=== PATIENT | female | born 1960 | race Caucasian/White ===

== ENCOUNTER → 2020-08-17 11:02 | Outpatient (CLI) | payer BC, SELFPAY ==
[2020-08-17 12:21] LABS: Calcium 6.3 mg/dl (8.4-10.2)
[2020-08-17 15:16] LABS: 25-OH Vitamin D, Total 65.6 ng/mL (30-100)
[2020-08-18 18:18] LABS: Calcium, Ionized 3.4 mg/dL (4.5-5.6)
== END ==
PROVIDERS: Visit Provider Family Medicine
DX: E83.51 Hypocalcemia (principal)
CPT/HCPCS: 36415; 82306; 82310; 82330

== ENCOUNTER 2021-02-26 14:14 | Emergency (ER) | payer BC, SELFPAY ==
[2021-02-26] VITALS (9 sets, daily range): BP systolic 133–156; BP diastolic 76–106; PULSE 73–99; RESP 16–19; TEMP 36.6–36.7; O2SAT 96–98; BMI 25.0
--- NOTE | 2021-02-26 14:28 | HMH.EDGENADL ---
ED Disposition Clinical Impression: Hypocalcemia, Hypokalemia Disposition: Admitted As Inpatient Condition on Discharge: Fair Instructions: DI for Hypokalemia, DI for Hypocalcemia Additional Instructions: You have been evaluated for hypocalcemia and hypokalemia. Please take 1 g oral calcium every 6 hours for the next 2 days. Follow-up with your primary care doctor in 48 hours for repeat calcium check. Return to the emergency department at once if you have any new or worsening symptoms, muscle cramps, weakness, seizures, any other concerns. Prescriptions: Calcium Carbonate [Calcium] 1,000 mg PO Q6 2 Days #16 tab Transmission Status: Received by [id number] Referrals: Shaniqua Camilo APRN [Primary Care Provider] - Time of Disposition: 17:30 - Critical Care Critical Care Time: No Attestation: On 02/26/21, the high probability of a clinically significant, sudden or life threatening deterioration of the following system(s) required my full and direct attention, intervention and personal management. The time I documented below is in addition to time spent performing reported procedures but includes the following listed in this critical care notation. Medical Decision Making - Medical Records Medical records reviewed: Yes: I reviewed the patient's medical records. - Harley Inquiry Pt receiving controlled substance: No Vital Signs: 02/26/21 14:15 02/26/21 14:37 02/26/21 15:00 Temperature 97.8 F Temperature Source Oral Pulse Rate 99 H 87 Pulse Rate [Left Radial] 94 H Respiratory Rate 19 Blood Pressure 152/95 H 133/83 Blood Pressure [Right Arm] 152/95 H Blood Pressure Mean 110 100 Blood Pressure Mean [Right Arm] 114 Blood Pressure Source [Right Arm] Automatic Cuff Blood Pressure Position [Right Arm] Sitting 02 Sat by Pulse Oximetry 96 96 Oxygen Delivery Method Room Air 02/26/21 15:30 02/26/21 16:00 02/26/21 16:09 Temperature Temperature Source Pulse Rate 80 73 79 Pulse Rate [Left Radial] Respiratory Rate 16 Blood Pressure 151/84 H 152/81 H 145/76 H Blood Pressure [Right Arm] Blood Pressure Mean 106 104 101 Blood Pressure Mean [Right Arm] Blood Pressure Source [Right Arm] Blood Pressure Position [Right Arm] 02 Sat by Pulse Oximetry 96 98 98 Oxygen Delivery Method 02/26/21 16:31 02/26/21 17:31 02/26/21 18:50 Temperature 98.1 F Temperature Source Oral Pulse Rate 77 78 78 Pulse Rate [Left Radial] Respiratory Rate 16 16 Blood Pressure 156/106 H 140/86 140/86 Blood Pressure [Right Arm] Blood Pressure Mean 118 106 Blood Pressure Mean [Right Arm] Blood Pressure Source [Right Arm] Blood Pressure Position [Right Arm] 02 Sat by Pulse Oximetry 97 98 Oxygen Delivery Method Room Air Room Air - Lab Data Lab Results 02/26/21 14:25: Sodium 140, Potassium 2.8 L*, Chloride 102, Carbon Dioxide 25, Anion Gap 15.8 H, BUN 8, Creatinine 1.10 H, Estimated Creat Clear 59, Estimated GFR 51 L, Est GFR ( Amer) 62, Glucose 100, Calcium 6.3 L, Magnesium 1.5 L, Total Bilirubin 0.4, AST 21, ALT 12, Alkaline Phosphatase 72, Total Protein 7.3, Albumin 4.2, Globulin 3.1, Albumin/Globulin Ratio 1.4 02/26/21 14:26: Phosphorus 6.5 H 02/26/21 14:45: WBC 7.5, RBC 4.69, Hgb 14.2, Hct 41.4, MCV 88.1, MCH 30.2, MCHC 34.2, RDW 14.0, Plt Count 239, MPV 8.4, Neut % (Auto) 60.5, Lymph % (Auto) 28.0, [place] % (Auto) 7.2, Eos % (Auto) 3.6, Baso % (Auto) 0.7, Neut # (Auto) 4.6, Lymph # (Auto) 2.1, [place] # (Auto) 0.5, Eos # (Auto) 0.3, Baso # (Auto) 0.1 02/26/21 14:45: Troponin I < 0.01 02/26/21 14:45: Sodium Cancelled, Potassium Cancelled, Chloride Cancelled, Carbon Dioxide Cancelled, Anion Gap Cancelled, BUN Cancelled, Creatinine Cancelled, Estimated Creat Clear Cancelled, Estimated GFR Cancelled, Est GFR ( Amer) Cancelled, Glucose Cancelled, Calcium Cancelled 02/26/21 17:00: Sodium 141, Potassium 3.5 D, Chloride 106, Carbon Dioxide 24, Anion Gap 14.5,
--- NOTE | 2021-02-26 14:33 | ECG_ITS ---
APPROVED REPORT Exam: Resting ECG HR:97 bpm ECG Measurements Heart Rate 97 AXES NC 138 P 61 QRSd 80 QRS 56 QT 386 T 266 QTc 490 Conclusion Normal sinus rhythm Left atrial abnormality Old nonsignificant inferior q waves - old finding Abnormal ECG Electronically signed by : Agapito Stapleton, 02/27/2021 13:16:56
[2021-02-26 14:55] LABS: Basophils # 0.1 K/mm3 (0-0.2); Basophils % 0.7 % (0.1-2.0); Eosinophils # 0.3 K/mm3 (0.0-0.4); Eosinophils % 3.6 % (0.1-12.0); Hematocrit 41.4 % (37.0-47.0); Hemoglobin 14.2 g/dL (12.2-16.2); Lymphocytes # 2.1 K/mm3 (0.7-4.5); Mean Corpuscular HGB Conc 34.2 g/dL (31.8-35.4); Mean Corpuscular Hemoglobin 30.2 pg (27.0-31.2); Mean Corpuscular Volume 88.1 fl (81-99); Mean Platelet Volume 8.4 fl (7.4-10.4); Monocytes # 0.5 K/mm3 (0.1-1.0); Monocytes % 7.2 % (1.7-9.3); Neutrophils # 4.6 K/mm3 (1.8-7.8); Neutrophils % 60.5 % (37.0-80.0); Platelet Count 239 K/mm3 (142-424); Red Blood Count 4.69 M/mm3 (4.20-5.40); White Blood Count 7.5 K/mm3 (4.8-10.8)
[2021-02-26 15:05] LABS: Phosphorous 6.5 mg/dl (2.5-4.5)
[2021-02-26 15:06] LABS: Alanine Aminotransferase 12 U/L (12-78); Albumin Level 4.2 g/dl (3.5-5.0); Albumin/Globulin Ratio 1.4 (1.1-1.8); Alkaline Phosphatase 72 U/L (38-126); Anion Gap 15.8 mEq/L (5-15); Aspartate Amino Transferase 21 U/L (14-36); Bilirubin,Total 0.4 mg/dl (0.2-1.3); Blood Urea Nitrogen 8 mg/dl (7-17); Carbon Dioxide 25 mmol/L (22.0-30.0); Chloride 102 mmol/L (98-107); Creatinine Clearance Estimated 59 mL/min (50-200); Estimated Glomerular Filt Rate 51 ml/min (>60); GFR (African American) 62 ML/MIN (>60); Globulin 3.1 g/dL (1.3-3.2); Glucose 100 mg/dl (74-100); Magnesium 1.5 mg/dl (1.6-2.3); Sodium 140 mmol/L (136-145); Total Protein,Serum 7.3 g/dl (6.3-8.2)
[2021-02-26 15:10] LABS: Calcium 6.3 mg/dl (8.4-10.2); Potassium 2.8 mmoL/L (3.5-5.1)
--- NOTE | 2021-02-26 15:10 | PC.NURSE ---
critical labs called, K+ 2.8 and calcium 6.3. aware
[2021-02-26 16:05] LABS: Troponin I < 0.01 ng/ml (0.00-0.034)
[2021-02-26 17:26] LABS: Anion Gap 14.5 mEq/L (5-15); Blood Urea Nitrogen 8 mg/dl (7-17); Carbon Dioxide 24 mmol/L (22.0-30.0); Chloride 106 mmol/L (98-107); Creatinine Clearance Estimated 72 mL/min (50-200); Estimated Glomerular Filt Rate 64 ml/min (>60); GFR (African American) 78 ML/MIN (>60); Glucose 99 mg/dl (74-100); Potassium 3.5 mmoL/L (3.5-5.1); Sodium 141 mmol/L (136-145)
[2021-02-26 17:28] LABS: Calcium 6.2 mg/dl (8.4-10.2)
--- NOTE | 2021-02-26 17:30 | PC.NURSE ---
Called section housekeeper for a bed.
--- NOTE | 2021-02-26 18:16 | PC.NURSE ---
Addendum entered by Christina Zaldivar, EMT-P 02/26/21 18:16: Busher Helper notified to cancel the bed. Original Note: Patient states she does not want to be admitted. Patient advised by RN the risks of not being admitted and advised she would have to sign out AMA.
[2021-02-26 18:25] LABS: Chloride 108 mmol/L (98-107)
[2021-02-26 18:26] LABS: Potassium 3.2 mmoL/L (3.5-5.1); Sodium 140 mmol/L (136-145)
[2021-02-26 18:28] LABS: Blood Urea Nitrogen 8 mg/dl (7-17); Creatinine Clearance Estimated 72 mL/min (50-200); Estimated Glomerular Filt Rate 64 ml/min (>60); GFR (African American) 78 ML/MIN (>60)
[2021-02-26 18:29] LABS: Anion Gap 9.2 mEq/L (5-15); Carbon Dioxide 26 mmol/L (22.0-30.0); Glucose 100 mg/dl (74-100)
[2021-02-26 18:31] LABS: Calcium 6.6 mg/dl (8.4-10.2)
--- NOTE | 2021-02-26 18:31 | PC.NURSE ---
Critical lab value: Calcium 6.6
--- NOTE | 2021-02-26 18:32 | PC.NURSE ---
Calcium 6.6 MD Aware
[2021-02-26 18:49] LABS: Troponin I < 0.01 ng/ml (0.00-0.034)
== END 2021-02-26 18:50 | disposition admitted as inpatient to this hospital (09) ==
PROVIDERS: Emergency Provider Emergency Medicine; PCP Nurse Practitioner Family
DX: E83.51 Hypocalcemia (principal); E87.6 Hypokalemia
CPT/HCPCS: 80048; 80053; 83735; 84100; 84484; 85025; 93005; 96365; 96366; 99282; J2405

== ENCOUNTER → 2021-03-14 18:01 | Outpatient (CLI) | payer BC, SELFPAY ==
[2021-03-22 17:39] LABS: C difficile Toxins AB, EIA NEGATIVE
== END ==
PROVIDERS: Visit Provider Nurse Practitioner Family
DX: R19.7 Diarrhea, unspecified (principal)
CPT/HCPCS: 87045; 87324

== ENCOUNTER → 2021-05-13 09:38 | Outpatient (CLI) | payer BC, SELFPAY ==
[2021-05-13 10:24] LABS: Basophils # 0.1 K/mm3 (0-0.2); Basophils % 1.4 % (0.1-2.0); Eosinophils # 0.2 K/mm3 (0.0-0.4); Eosinophils % 2.7 % (0.1-12.0); Hematocrit 39.7 % (37.0-47.0); Hemoglobin 13.3 g/dL (12.2-16.2); Lymphocytes # 2.2 K/mm3 (0.7-4.5); Lymphocytes % 30.1 % (10-50); Mean Corpuscular HGB Conc 33.6 g/dL (31.8-35.4); Mean Corpuscular Hemoglobin 29.7 pg (27.0-31.2); Mean Corpuscular Volume 88.4 fl (81-99); Mean Platelet Volume 8.7 fl (7.4-10.4); Monocytes # 0.4 K/mm3 (0.1-1.0); Monocytes % 5.3 % (1.7-9.3); Neutrophils # 4.5 K/mm3 (1.8-7.8); Neutrophils % 60.6 % (37.0-80.0); Platelet Count 243 K/mm3 (142-424); Red Blood Count 4.49 M/mm3 (4.20-5.40); Red Cell Distribution Width 14.3 % (11.5-17.5); White Blood Count 7.4 K/mm3 (4.8-10.8)
[2021-05-13 11:01] LABS: Chloride 102 mmol/L (98-107); Potassium 3.5 mmoL/L (3.5-5.1); Sodium 143 mmol/L (136-145)
[2021-05-13 11:04] LABS: Alanine Aminotransferase 9 U/L (12-78); Albumin Level 4.3 g/dl (3.5-5.0); Albumin/Globulin Ratio 1.5 (1.1-1.8); Alkaline Phosphatase 77 U/L (38-126); Anion Gap 13.5 mEq/L (5-15); Aspartate Amino Transferase 19 U/L (14-36); Bilirubin,Total 0.5 mg/dl (0.2-1.3); Blood Urea Nitrogen 11 mg/dl (7-17); Carbon Dioxide 31 mmol/L (22.0-30.0); Estimated Glomerular Filt Rate 57 ml/min (>60); GFR (African American) 69 ML/MIN (>60); Globulin 2.8 g/dL (1.3-3.2); Total Protein,Serum 7.1 g/dl (6.3-8.2)
[2021-05-13 11:05] LABS: Calcium 7.2 mg/dl (8.4-10.2); Glucose 118 mg/dl (74-100)
== END ==
PROVIDERS: Visit Provider Nurse Practitioner Family
DX: E83.51 Hypocalcemia (principal); R19.7 Diarrhea, unspecified
CPT/HCPCS: 36415; 80053; 85025

== ENCOUNTER → 2021-05-15 09:26 | Outpatient (CLI) | payer BC, SELFPAY ==
--- NOTE | 2021-05-15 09:34 | US_ITS ---
PROCEDURE: US ABDOMEN LIMITED CLINICAL INDICATION: RUQ ABD PAIN COMPARISON: No exams were available for comparison FINDINGS: PANCREAS: Unremarkable. No obvious mass or abnormal fluid collection. No ductal dilatation LIVER: No focal liver lesions demonstrated. Homogeneous echogenicity. No intrahepatic biliary ductal dilatation evident. There is appropriate direction of blood flow within a non dilated portal vein RIGHT KIDNEY: Unremarkable. Normal size and echogenicity. No hydronephrosis GALLBLADDER: No gallstones apparent. Gallbladder wall is upper limits of normal at 3-4 mm. No pericholecystic fluid. Common duct is normal at 4-5 mm. IMPRESSION: No gallstones apparent. Nonspecific minimal gallbladder wall thickening Dictated by: Bran Munguia MD 05/16/2021 15:11 Bran Munguia MD in [facility] 05/16/2021 15:11
== END ==
PROVIDERS: PCP Nurse Practitioner Family; Visit Provider Nurse Practitioner Family
DX: R10.11 Right upper quadrant pain (principal)
CPT/HCPCS: 76705

== ENCOUNTER 2021-06-15 11:09 | Day surgery (SDC) | payer BC, SELFPAY ==
[2021-06-15] VITALS (13 sets, daily range): BP systolic 120–174; BP diastolic 63–94; PULSE 67–87; RESP 12–16; TEMP 36.1–43; O2SAT 93–100; BMI 23.6
--- NOTE | 2021-06-15 11:22 | HMH.EDGENADL ---
ED Disposition Clinical Impression: Appendicitis Disposition: Admitted As Inpatient Condition on Discharge: Good Instructions: DI for Acute Abdominal Pain Referrals: Shaniqua Camilo APRN [Primary Care Provider] - - Critical Care Critical Care Time: No Attestation: On , the high probability of a clinically significant, sudden or life threatening deterioration of the following system(s) required my full and direct attention, intervention and personal management. The time I documented below is in addition to time spent performing reported procedures but includes the following listed in this critical care notation. Medical Decision Making - Medical Records MR Comment: CT scan of the abdomen is consistent with appendicitis with thickness about 14 mm of the appendix. Dr. Bartholomew the surgeon was called and he agreed to admit the patient. Patient agreed to be admitted. Will be n.p.o.. - Harley Inquiry Pt receiving controlled substance: No Harley was queried for this patient: No Vital Signs: 06/15/21 11:10 06/15/21 11:30 06/15/21 12:15 Temperature 97.9 F Temperature Source Oral Pulse Rate 71 67 Pulse Rate [Radial] 77 Respiratory Rate 16 Blood Pressure 156/85 H 164/83 H Blood Pressure [Right Arm] 174/94 H Blood Pressure Mean [Right Arm] 120 Blood Pressure Position [Right Arm] Sitting 02 Sat by Pulse Oximetry 93 L 99 100 Oxygen Delivery Method Room Air Nasal Cannula Nasal Cannula Oxygen Flow Rate (LPM) 2 2 06/15/21 12:49 Temperature Temperature Source Pulse Rate 78 Pulse Rate [Radial] Respiratory Rate Blood Pressure 153/79 H Blood Pressure [Right Arm] Blood Pressure Mean [Right Arm] Blood Pressure Position [Right Arm] 02 Sat by Pulse Oximetry 100 Oxygen Delivery Method Nasal Cannula Oxygen Flow Rate (LPM) 2 - Lab Data Lab Results 06/15/21 11:20: Urine Color Yellow, Urine Appearance Cloudy, Urine pH >= 9.0 H, Ur Specific [place] 1.015, Urine Protein Negative, Urine Glucose (UA) Negative, Urine Ketones Negative, Urine Blood Trace-i, Urine Nitrate Negative, Urine Bilirubin Negative, Urine Urobilinogen 0.2, Ur Leukocyte Esterase Negative, Urine RBC Occasional, Urine WBC Occasional, Ur Squamous Epith Cells 5-10, Urine Bacteria 3+ 06/15/21 11:20: WBC 10.9 H, RBC 4.46, Hgb 13.7, Hct 39.8, MCV 89.1, MCH 30.7, MCHC 34.4, RDW 14.6, Plt Count 225, MPV 8.8, Neut % (Auto) 80.0, Lymph % (Auto) 14.9, [place] % (Auto) 3.8, Eos % (Auto) 0.7, Baso % (Auto) 0.7, Neut # (Auto) 8.7 H, Lymph # (Auto) 1.6, [place] # (Auto) 0.4, Eos # (Auto) 0.1, Baso # (Auto) 0.1 06/15/21 11:20: Sodium 142, Potassium 3.1 L, Chloride 103, Carbon Dioxide 29, Anion Gap 13.1, BUN 11, Creatinine 1.20 H, Estimated Creat Clear 55, Estimated GFR 46 L, Est GFR ( Amer) 56 L, Glucose 147 H, Calcium 8.5, Total Bilirubin 0.5, AST 23, ALT 16, Alkaline Phosphatase 84, Total Protein 7.7, Albumin 4.5, Globulin 3.2, Albumin/Globulin Ratio 1.4, Amylase 36, Lipase 47 Result diagrams: 06/15/21 11:20 06/15/21 11:20 Orders (Tests/Meds): ED MEDICATIONS Discontinued Medications Generic Name Dose Route Start Last Admin Trade Name Freq PRN Reason Stop Dose Admin Sodium Chloride 1,000 mls @ 999 mls/hr 06/15/21 11:30 06/15/21 11:31 Sod Chlor 0.9% 1000ml Bag IV 06/15/21 12:30 999 mls/hr .Q1H1M CHERIE Administration Ketorolac Tromethamine 30 mg 06/15/21 11:30 06/15/21 11:31 Ketorolac 30mg/Ml Vial IV 06/15/21 11:31 30 mg ONCE ONE Administration Ondansetron HCl 4 mg 06/15/21 11:30 06/15/21 11:31 Ondansetron 4mg/2ml Vial IV 06/15/21 11:31 4 mg ONCE ONE Administration ORDERS Category Date Time Status Urine Culture Stat Micro 06/15/21 11:20 Received General Adult HPI - General Chief complaint: Abdominal Pain Stated complaint: Rt side pain Time Seen by Provider: 06/15/21 11:50 - History of Present Illness HPI narrative: 11-year-old male who woke up this morning with right-sided abdominal pa
[2021-06-15 11:34] LABS: Microscopic, Urine URINE MICROSCOPIC (MICROSCOPIC)
[2021-06-15 11:35] LABS: Basophils # 0.1 K/mm3 (0-0.2); Basophils % 0.7 % (0.1-2.0); Eosinophils # 0.1 K/mm3 (0.0-0.4); Eosinophils % 0.7 % (0.1-12.0); Hematocrit 39.8 % (37.0-47.0); Hemoglobin 13.7 g/dL (12.2-16.2); Lymphocytes # 1.6 K/mm3 (0.7-4.5); Lymphocytes % 14.9 % (10-50); Mean Corpuscular HGB Conc 34.4 g/dL (31.8-35.4); Mean Corpuscular Hemoglobin 30.7 pg (27.0-31.2); Mean Corpuscular Volume 89.1 fl (81-99); Mean Platelet Volume 8.8 fl (7.4-10.4); Monocytes # 0.4 K/mm3 (0.1-1.0); Monocytes % 3.8 % (1.7-9.3); Neutrophils # 8.7 K/mm3 (1.8-7.8); Platelet Count 225 K/mm3 (142-424); Red Blood Count 4.46 M/mm3 (4.20-5.40); Red Cell Distribution Width 14.6 % (11.5-17.5); White Blood Count 10.9 K/mm3 (4.8-10.8)
[2021-06-15 11:36] LABS: Chloride 103 mmol/L (98-107); Sodium 142 mmol/L (136-145)
[2021-06-15 11:37] LABS: Potassium 3.1 mmoL/L (3.5-5.1)
[2021-06-15 11:39] LABS: Alanine Aminotransferase 16 U/L (12-78); Amylase 36 U/L (30-110); Anion Gap 13.1 mEq/L (5-15); Aspartate Amino Transferase 23 U/L (14-36); Blood Urea Nitrogen 11 mg/dl (7-17); Carbon Dioxide 29 mmol/L (22.0-30.0); Creatinine Clearance Estimated 55 mL/min (50-200); Estimated Glomerular Filt Rate 46 ml/min (>60); GFR (African American) 56 ML/MIN (>60)
[2021-06-15 11:40] LABS: Albumin Level 4.5 g/dl (3.5-5.0); Albumin/Globulin Ratio 1.4 (1.1-1.8); Alkaline Phosphatase 84 U/L (38-126); Bilirubin,Total 0.5 mg/dl (0.2-1.3); Calcium 8.5 mg/dl (8.4-10.2); Globulin 3.2 g/dL (1.3-3.2); Glucose 147 mg/dl (74-100); Lipase 47 U/L (23-300); Total Protein,Serum 7.7 g/dl (6.3-8.2)
[2021-06-15 11:41] LABS: Appearance,Urine CLOUDY (Clear); Bilirubin,Urine Negative (Negative); Blood, Urine TRACE-I (Negative); Color,Urine YELLOW (Yellow); Glucose,Urine (UA) Negative (Negative); Ketones,Urine Negative (Negative); Leukocyte Esterase,Urine Negative (Negative); Nitrate,Urine Negative (Negative); Protein,Urine Negative (Negative); Specific Gravity, Urine 1.015 (1.005-1.030); Urobilinogen,Urine 0.2 EU/dl (0.2)
[2021-06-15 11:44] LABS: PH,Urine >= 9.0 (5.0-8.5)
[2021-06-15 11:51] LABS: Bacteria,Urine 3+ /lpf; RBC,Urine Occasional #/hpf (0-3); WBC,Urine Occasional #/hpf (0-3)
--- NOTE | 2021-06-15 11:57 | CT_ITS ---
PROCEDURE INFORMATION: Exam: CT Abdomen And Pelvis Without Contrast Exam date and time: 06/15/2021 11:57 AM Age: 61 years old Clinical indication: Vomiting and other: Diarrhea; Prior surgery; Surgery date: 6+ months; Surgery type: Hysterectomy, 2 c sections; Additional info: Pain, patient also states vomiting and diarrhea intermittent since February 2021 TECHNIQUE: Imaging protocol: Computed tomography of the abdomen and pelvis without contrast. Radiation optimization: All CT scans at this facility use at least one of these dose optimization techniques: automated exposure control; mA and/or kV adjustment per patient size (includes targeted exams where dose is matched to clinical indication); or iterative reconstruction. COMPARISON: US ABDOMEN LIMITED 05/15/2021 9:34 AM FINDINGS: Liver: Normal. No mass. Gallbladder and bile ducts: Normal. No calcified stones. No ductal dilation. Pancreas: Normal. No ductal dilation. Spleen: Normal. No splenomegaly. Adrenal glands: Normal. No mass. Kidneys and ureters: Normal. No hydronephrosis. Stomach and bowel: Unremarkable. No obstruction. No mucosal thickening. Appendix: Appendix distended to 14 mm, without significant inflammatory changes. Appendicolith noted at the appendiceal base. Early appendicitis without perforation, clinical correlation necessary. Intraperitoneal space: Unremarkable. No free air. No significant fluid collection. Vasculature: Unremarkable. No abdominal aortic aneurysm. Lymph nodes: Unremarkable. No enlarged lymph nodes. Urinary bladder: Unremarkable as visualized. Reproductive: Unremarkable as visualized. Bones/joints: Unremarkable. No acute fracture. Soft tissues: Unremarkable. IMPRESSION: Appendix distended to 14 mm, without significant inflammatory changes. Appendicolith noted at the appendiceal base. Early appendicitis without perforation, clinical correlation necessary.
--- NOTE | 2021-06-15 12:50 | PC.NURSE ---
Pt returned from rad
--- NOTE | 2021-06-15 13:27 | PC.NURSE ---
YULIANA [place] on phone with [facility] at this time
--- NOTE | 2021-06-15 13:30 | PC.NURSE ---
Paged the surgeon longwall machine operator helper per MD verbal request
--- NOTE | 2021-06-15 13:31 | PC.NURSE ---
on phone with Dr. Meeks at this time
--- NOTE | 2021-06-15 13:35 | PC.NURSE ---
Dr. Meeks stated for patient to be prepped for surgery at this time
--- NOTE | 2021-06-15 14:09 | PC.NURSE ---
Surgery team paged.
--- NOTE | 2021-06-15 14:11 | PC.NURSE ---
Dr Meeks at bedside surgery team paged.
--- NOTE | 2021-06-15 14:40 | PC.NURSE ---
allied health professional for dr adrianna borrego
[2021-06-15 14:47] LABS: Coronavirus 19, PCR Not Detected (NotDetected); Influenza A, PCR Not Detected (NotDetected); Influenza B, PCR Not Detected (NotDetected)
--- NOTE | 2021-06-15 14:51 | PC.NURSE ---
pt transferred to surgery
--- NOTE | 2021-06-15 15:20 | HMH.ANESCL ---
[facility] Anesthesia Checklist - Structural Data Admitted From: Emergency Dept Planned Operative Procedure/s: lap appy Consent for Planned Operative Procedure(s) Verified: Yes - Airway Assessment C-Spine Mobility Assessed: Yes TMJ Mobility Assessed: Yes Dentition: Good Dentition - Neurological Assessment Level of Consciousness: Awake, Alert, Appropriate - Anesthesia Plan Anesthesia Risk discussed: Yes Anesthesia Plan: Verified ASA Class: II Anesthesia Type: General [facility] History I have reviewed the patient's past medical history: Yes Medical History: Denies:: Cancer, Diabetes Mellitus Type 1, Diabetes Mellitus Type 2, MRSA *Have you ever received a pneumonia vaccine?: No *Have you received a flu vaccine this season?: No Anesthesia experience/problems:: none Amputation: No - *Social History Smoking Status: Current every day smoker Tobacco Type: cigarettes Alcohol Intake: never Substance Use Type: denies use *Occupational Status:: other *Travel in the last 8 weeks: Inside the [facility] Family Hx:: No significant family history
--- NOTE | 2021-06-15 16:12 | HMH.OPNOTE ---
Date of procedure: 06/15/21 Pre-op Diagnosis:: Appendicitis Post-op Diagnosis:: Same Procedure performed:: Laparoscopic appendectomy Surgeon:: Eitan Meeks MD REFERENCE SERVICES HEAD:: Jose Jones Anesthesia: GETA Estimated blood loss (mL): 25 Operative findings:: Enlarged/inflamed appendix with moderate periappendiceal fat stranding Severe adhesions between omentum and anterior abdominal wall secondary to prior surgery Operative note:: After informed consent was obtained the patient was taken to the operating room and placed in the supine position. General anesthesia was induced and her abdomen was prepped and draped in a sterile fashion. After infiltration local anesthetic a supraumbilical incision was made. A Veress needle was placed in position. The abdomen was insufflated. A 12 mm optical trocar was placed in position. Visualization revealed dense adhesions throughout the lower abdomen. The omentum was densely adhered to the abdominal wall between the umbilicus and pelvis. Under direct visualization a 5 mm trocar was placed in the left upper quadrant. The lateral adhesions were taken down bluntly and an additional 5 mm trocar was placed along the left lower quadrant. Blunt dissection continued to free the densely-adhered omentum. An additional 5 mm trocar was then placed in the suprapubic position. The appendix was found to be adhered to the lateral right lower quadrant. The appendix was enlarged and very inflamed. No sign of perforation was noted. As the appendix was elevated the mesoappendix was taken with harmonic erin. The Endopath 45 stapling device was then used to transect the appendix at its base. The appendix was placed in a retrieval bag and removed through the supraumbilical trocar site. The right lower quadrant was thoroughly irrigated. No active bleeding or sign of injury was noted. The fascia at the supraumbilical trocar site was reapproximated with interrupted 0 Ethibond. The remaining trocars were removed and skin was closed with 4-0 Monocryl. Dressings were applied and the patient was transferred to recovery in stable condition. Condition: stable Disposition: PACU Specimens:: Appendix Complications:: No immediate
--- NOTE | 2021-06-15 16:18 | HMH.ANESI ---
[facility] Anesthesia Record Part I Intake, IV Amount: 1,600 Estimated blood loss (mL): 0 Urine output (mL): 400 Blood Pressure: 136/73 SaO2: 97 Pulse Rate: 87 Respiratory Rate: 12 Temperature: 97 F Patient is:: Awake, Stable Stable to PACU at:: 16:15
[2021-06-15 17:12] LABS: Microscopic,Cath URINE MICROSCOPIC (MICROSCOPIC)
[2021-06-15 17:14] LABS: Appearance,Urine/Cath SL CLOUDY (Clear); Bilirubin,Cath Negative (Negative); Blood, Urine/Cath 1+ (Negative); Color,Urine/Cath STRAW (Yellow); Glucose,Urine/Cath (UA) Negative (Negative); Ketones,Urine/Cath Negative (Negative); Leukocyte Esterase,Cath TRACE (Negative); Nitrate,Cath POSITIVE (Negative); PH,Urine/Cath 7.5 (5.0-8.5); Protein,Urine/Cath Negative (Negative); Urobilinogen,Cath 0.2 EU/dl (0.2)
[2021-06-15 17:21] LABS: Bacteria,Urine/Cath 4+ /lpf
--- NOTE | 2021-06-18 08:53 | HMH.ANESII ---
[facility] Anesthesia Record Part II Discharge Time: 16:34 Destination: Surgical Day Care (OP Surgery) PACU nurse assessment reviewed?: Yes Patient Condition:: Good Anesthesia Complications:: None Swallowing reflex intact?: Yes Cyanosis?: No Blood Pressure: 120/63 Pulse Rate: 78 Temperature: 97.4 F Mental Status: Alert & Oriented Pain level:: 0 Nausea and/or vomitting:: None Intake, IV Amount: 0
[2021-06-18 08:54] VITALS: BP 120/63; PULSE 78; TEMP 36.3
== END 2021-06-15 15:17 ==
LOC: ER 14:16 → SDC 15:18
PROVIDERS: Emergency Provider Internal Medicine; PCP Nurse Practitioner Family; Visit Provider Surgery
PROC: (CPT 44950; principal; 2021-06-15 15:00)
DX: K35.890 Other acute appendicitis without perforation or gangrene (principal); K66.0 Peritoneal adhesions (postprocedural) (postinfection); Z72.0 Tobacco use; E89.0 Postprocedural hypothyroidism
CPT/HCPCS: 44970; 74176; 80053; 81001; 82150; 83690; 85025; 87086; 87088; 87186; 96365; 96375; 99284; J2405; J2710; U0003

== ENCOUNTER 2022-04-20 16:41 | Inpatient (IN) | payer BC, SELFPAY ==
[2022-04-20] VITALS (7 sets, daily range): BP systolic 102–143; BP diastolic 55–78; PULSE 70–115; RESP 17–18; TEMP 37–39.2; O2SAT 95–98; BMI 22.8; BMI 24.1
--- NOTE | 2022-04-20 16:38 | PC.NURSE ---
JANICE Joe at for triage
--- NOTE | 2022-04-20 16:42 | ECG_ITS ---
APPROVED REPORT Exam: Resting ECG HR:108 bpm ECG Measurements Heart Rate 108 AXES LA 148 P 55 QRSd 98 QRS 73 QT 370 T 42 QTc [address] DEVIATION AND MODERATE T-WAVE ABNORMALITY, CONSIDER LATERAL ISCHEMIA [-0.1+ mV T-WAVE IN I/aVL/V5/V6] ST DEVIATION AND MODERATE T-WAVE ABNORMALITY, CONSIDER INFERIOR ISCHEMIA [-0.1+ mV T-WAVE IN II/aVF] ABNORMAL ECG UNCONFIRMED REPORT Electronically signed by : Agapito Stapleton MD 04/21/2022 09:40:22
--- NOTE | 2022-04-20 16:48 | HMH.EDGENADL ---
ED Disposition Clinical Impression: Hypokalemia, Hypocalcemia Syncopal episodes Qualifiers: Syncope type: vasovagal syncope Qualified Code(s): R55 - Syncope and collapse Disposition: Admitted As Inpatient Condition on Discharge: [facility] - Critical Care Critical Care Time: Yes (Severe hypokalemia ) Attestation: On 04/20/22, the high probability of a clinically significant, sudden or life threatening deterioration of the following system(s) required my full and direct attention, intervention and personal management. The time I documented below is in addition to time spent performing reported procedures but includes the following listed in this critical care notation. Vital system(s) involved:: Metabolic Failure My critical care processes included: Assessment & monitoring of V/S, Initial and Re-exams, Data Review/Interpretation, Coordinating Care, Medication Orders and management Medical Decision Making - Medical Records Medical records reviewed: Yes: I reviewed the patient's medical records. - Harley Inquiry Pt receiving controlled substance: No Vital Signs: 04/20/22 16:38 04/20/22 17:00 04/20/22 17:30 Temperature 102.5 F H Temperature Source Oral Pulse Rate 108 H 102 H Pulse Rate [Right Radial] 115 H Respiratory Rate 18 18 17 Blood Pressure 136/66 102/64 L Blood Pressure [Right Arm] 143/78 H Blood Pressure Mean 89 76 Blood Pressure Mean [Right Arm] 99 Blood Pressure Source Automatic Cuff Blood Pressure Source [Right Arm] Automatic Cuff Blood Pressure Position Sitting Blood Pressure Position [Right Arm] Sitting 02 Sat by Pulse Oximetry 95 96 96 Oxygen Delivery Method Room Air Room Air 04/20/22 18:00 04/20/22 19:36 Temperature 98.6 F Temperature Source Pulse Rate 95 H 90 Pulse Rate [Right Radial] Respiratory Rate 17 18 Blood Pressure 104/55 L 105/77 L Blood Pressure [Right Arm] Blood Pressure Mean 71 Blood Pressure Mean [Right Arm] Blood Pressure Source Blood Pressure Source [Right Arm] Blood Pressure Position Blood Pressure Position [Right Arm] 02 Sat by Pulse Oximetry 98 Oxygen Delivery Method - Lab Data Lab results reviewed: Yes: I reviewed the patient's lab results. Lab Results 04/20/22 16:41: SARS-CoV-2 (PCR) Not detected, Influenza A Untype (PCR) Not detected, Influenza Type B (PCR) Not detected 04/20/22 17:08: WBC 15.7 H, RBC 4.00 L, Hgb 12.4, Hct 36.1 L, MCV 90.2, MCH 31.1, MCHC 34.4, RDW 13.9, Plt Count 231, MPV 8.7, Neut % (Auto) 86.7 H, Lymph % (Auto) 6.6 L, [place] % (Auto) 4.4, Eos % (Auto) 0.9, Baso % (Auto) 1.3, Neut # (Auto) 13.6 H, Lymph # (Auto) 1.0, [place] # (Auto) 0.7, Eos # (Auto) 0.2, Baso # (Auto) 0.2, Total Counted 100, Neutrophils % (Manual) 86 H, Lymphocytes % (Manual) 8 L, Monocytes % (Manual) 4, Eosinophils % (Manual) 2, Platelet Estimate Normal 04/20/22 17:08: Sodium 131 L, Potassium 2.2 L*, Chloride 90 L, Carbon Dioxide 32 H, Anion Gap 11.2, BUN 21 H, Creatinine 2.10 H, Estimated Creat Clear 31, Estimated GFR 24 L, Est GFR ( Amer) 29 L, Glucose 153 H, Calcium 6.6 L, Magnesium 1.7, Total Bilirubin 1.0, AST 29, ALT 15, Alkaline Phosphatase 79, Total Protein 7.1, Albumin 3.9, Globulin 3.2, Albumin/Globulin Ratio 1.2 Result diagrams: 04/20/22 17:08 04/20/22 17:08 Orders (Tests/Meds): ED MEDICATIONS Generic Name Dose Route Start Last Admin Trade Name Freq PRN Reason Stop Dose Admin Acetaminophen 650 mg 04/20/22 19:45 Acetaminophen 325mg Tab PO 05/20/22 17:50 Q4HP PRN Fever or Mild Pain Calcium Gluconate 1,000 mg/ 60 mls @ 60 mls/hr 04/20/22 19:45 Sodium Chloride IV 04/20/22 20:44 ONCE ONE Lactated Ringer's 1,000 mls @ 100 mls/hr 04/20/22 19:45 Lactated Ringer's 1000 Ml Bag IV 05/20/22 17:59 .Q10H CHERIE Lactated Ringer's 1,000 mls @ 999 mls/hr 04/20/22 19:45 Lactated Ringer's 1000 Ml Bag IV 04/20/22 20:45 .Q1H1M CHERIE Potassium Chloride/Water 100 mls @ 100 mls/hr 04/20/22
--- NOTE | 2022-04-20 16:49 | PC.NURSE ---
ED MD at
[2022-04-20 16:57] LABS: Coronavirus 19, PCR Not Detected (NotDetected); Influenza A, PCR Not Detected (NotDetected); Influenza B, PCR Not Detected (NotDetected)
[2022-04-20 17:19] LABS: Basophils # 0.2 K/mm3 (0-0.2); Basophils % 1.3 % (0.1-2.0); Eosinophils # 0.2 K/mm3 (0.0-0.4); Eosinophils % 0.9 % (0.1-12.0); Hematocrit 36.1 % (37.0-47.0); Hemoglobin 12.4 g/dL (12.2-16.2); Lymphocytes % 6.6 % (10-50); Mean Corpuscular HGB Conc 34.4 g/dL (31.8-35.4); Mean Corpuscular Hemoglobin 31.1 pg (27.0-31.2); Mean Corpuscular Volume 90.2 fl (81-99); Mean Platelet Volume 8.7 fl (7.4-10.4); Monocytes # 0.7 K/mm3 (0.1-1.0); Monocytes % 4.4 % (1.7-9.3); Neutrophils # 13.6 K/mm3 (1.8-7.8); Neutrophils % 86.7 % (37.0-80.0); Platelet Count 231 K/mm3 (142-424); Red Cell Distribution Width 13.9 % (11.5-17.5); White Blood Count 15.7 K/mm3 (4.8-10.8)
[2022-04-20 17:20] LABS: Chloride 90 mmol/L (98-107); Sodium 131 mmol/L (136-145)
[2022-04-20 17:23] LABS: Alanine Aminotransferase 15 U/L (12-78); Albumin Level 3.9 g/dl (3.5-5.0); Albumin/Globulin Ratio 1.2 (1.1-1.8); Alkaline Phosphatase 79 U/L (38-126); Aspartate Amino Transferase 29 U/L (14-36); Blood Urea Nitrogen 21 mg/dl (7-17); Carbon Dioxide 32 mmol/L (22.0-30.0); Creatinine Clearance Estimated 31 mL/min (50-200); Estimated Glomerular Filt Rate 24 ml/min (>60); GFR (African American) 29 ML/MIN (>60); Globulin 3.2 g/dL (1.3-3.2); Glucose 153 mg/dl (74-100); Total Protein,Serum 7.1 g/dl (6.3-8.2)
[2022-04-20 17:24] LABS: Anion Gap 11.2 mEq/L (5-15); Calcium 6.6 mg/dl (8.4-10.2); Magnesium 1.7 mg/dl (1.6-2.3); Potassium 2.2 mmoL/L (3.5-5.1)
--- NOTE | 2022-04-20 17:24 | PC.NURSE ---
Family at BS
--- NOTE | 2022-04-20 17:24 | PC.NURSE ---
aware of potassium
[2022-04-20 17:26] LABS: MANUAL DIFFERENTIAL MANUAL DIFFERENTIAL (MANUAL DIFF)
--- NOTE | 2022-04-20 17:45 | PC.NURSE ---
Dr. Pieter borrego for Dr. mendoza
--- NOTE | 2022-04-20 17:48 | PC.NURSE ---
Dr. Stapleton speaking with Dr. Aguilera
--- NOTE | 2022-04-20 17:51 | PC.NURSE ---
Spoke with Angelita ([place]) regarding admission
[2022-04-20 17:53] LABS: Eosinophils % 2 % (0-3); Lymphocytes % 8 % (10-50); Monocytes % 4 % (2-9); Neutrophils % 86 % (42-76); Platelet Estimate Normal; Total Cells Counted 100
--- NOTE | 2022-04-20 19:41 | PC.NURSE ---
patient up to floor via Wheelchair @ this time.
[2022-04-21] VITALS (8 sets, daily range): BP systolic 120–126; BP diastolic 57–89; PULSE 80–100; RESP 16–20; TEMP 37.1–38.6; O2SAT 91–99; BMI 24.2
--- NOTE | 2022-04-21 04:14 | PC.NURSE ---
Addendum entered by Carola Salguero RN 04/21/22 07:05: Patient states she had x2 episodes of diarrhea this morning, denies any pain. Original Note: Pt has rested intermittently throughout shift. Pt has voiced no c/o of pain this shift with no episodes of N/V. Pt can independently ambulate to bathroom to void. Pt spiked a temp of 100.9, medicated per JAN.
[2022-04-21 06:53] LABS: Basophils # 0.1 K/mm3 (0-0.2); Basophils % 0.6 % (0.1-2.0); Eosinophils % 0.1 % (0.1-12.0); Hematocrit 31.7 % (37.0-47.0); Lymphocytes # 1.1 K/mm3 (0.7-4.5); Lymphocytes % 9.3 % (10-50); Mean Corpuscular HGB Conc 34.3 g/dL (31.8-35.4); Mean Corpuscular Hemoglobin 31.4 pg (27.0-31.2); Mean Corpuscular Volume 91.5 fl (81-99); Mean Platelet Volume 9.2 fl (7.4-10.4); Monocytes # 0.6 K/mm3 (0.1-1.0); Monocytes % 4.8 % (1.7-9.3); Neutrophils # 10.1 K/mm3 (1.8-7.8); Neutrophils % 85.1 % (37.0-80.0); Platelet Count 219 K/mm3 (142-424); Red Blood Count 3.47 M/mm3 (4.20-5.40); Red Cell Distribution Width 13.8 % (11.5-17.5); White Blood Count 11.8 K/mm3 (4.8-10.8)
[2022-04-21 07:02] LABS: Hemoglobin 10.9 g/dL (12.2-16.2); MANUAL DIFFERENTIAL MANUAL DIFFERENTIAL (MANUAL DIFF)
[2022-04-21 07:06] LABS: Anion Gap 10.7 mEq/L (5-15); Blood Urea Nitrogen 21 mg/dl (7-17); Calcium 6.2 mg/dl (8.4-10.2); Carbon Dioxide 29 mmol/L (22.0-30.0); Chloride 95 mmol/L (98-107); Creatinine Clearance Estimated 39 mL/min (50-200); Estimated Glomerular Filt Rate 31 ml/min (>60); GFR (African American) 37 ML/MIN (>60); Glucose 112 mg/dl (74-100); Sodium 132 mmol/L (136-145)
[2022-04-21 07:18] LABS: Potassium 2.7 mmoL/L (3.5-5.1)
[2022-04-21 07:32] LABS: Lymphocytes % 6 % (10-50); Monocytes % 4 % (2-9); Neutrophils % 90 % (42-76); RBC Morphology Normal; Total Cells Counted 100
[2022-04-21 07:33] LABS: Platelet Estimate Normal; Toxic Granulation 1+
--- NOTE | 2022-04-21 07:59 | P.CONPHA_ITS ---
[facility] Pharmacy VTE Monitoring - Patient Demographics Admission date: 04/20/22 Report Date: 04/21/22 Time: 07:59 Allergies/Adverse Reactions: Patient Allergies No Known Allergies Allergy (Verified 06/26/21 10:22) Height: 1.7 m Weight: 69.967 kg Patient Problems: Current Active Problems Hypocalcemia (Acute) Hypokalemia (Acute) Syncopal episodes (Acute) - VTE Risk Labs: VTE Related Lab Results Hgb 10.9 g/dL (12.2-16.2) L D 04/21/22 05:54 Hct 31.7 % (37.0-47.0) L 04/21/22 05:54 Plt Count 219 K/mm3 (142-424) 04/21/22 05:54 BUN 21 mg/dl (7-17) H 04/21/22 05:54 Creatinine 1.70 mg/dl (0.52-1.04) H 04/21/22 05:54 Estimated Creat Clear 39 mL/min (50-200) 04/21/22 05:54 VTE Score: 2 - Prophylaxis VTE Prophylaxis Ordered?: Yes Types of VTE Prophylaxis: TEDS Knee High Location of Applied Device: Bilateral Lower Extremeties
--- NOTE | 2022-04-21 09:03 | HMH.HP ---
*Admission Date: 04/20/22 *Chief complaint: Hypokalemia/hypocalcemia/diarrheal illness *History of present illness: 62-year-old female who is enjoyed fairly good functional status, who has had problems over the past several years with hypocalcemia, after thyroid surgery. She was told by Dr. Carranza that during her thyroid excision a cyst was found laterally to this and that when this was removed involved one of her parathyroid glands which was clipped. Since that time she is struggled with hypocalcemia and has had frequent problems with weakness, and has been taking oral calcium supplementation, 1000 mg daily, but continues to have relatively low calcium levels. Has never seen endocrinology. Does not recall any work-up done for her parathyroid hormone levels. She is very active in spite of the hypocalcemia and did not really have any problems with blood pressure until 2 years ago when she had COVID-19 infection and since that time has been placed on losartan/HCTZ. About 4 days ago she developed a significant diarrheal illness with abdominal cramping, production of multiples episodes of brownish watery stool without blood, mucus or vomiting. Her and grandchildren and children have not been ill. She cannot recall any unusual food or water sources or unusual smelling food or odd travel exposures. She became very weak yesterday, came to the emergency department. She was found to be significantly hypokalemic and hypocalcemic. Admitted to hospital for replacement. In review of her chart it turns out she also had a fever of 102 on presentation and another fever this morning of over 100 degrees. [facility] History I have reviewed the patient's past medical history: Yes Medical History: Reports:: Hypertension Denies:: Cancer, Diabetes Mellitus Type 1, Diabetes Mellitus Type 2, MRSA *Have you ever received a pneumonia vaccine?: No *Have you received a flu vaccine this season?: No Other Medical History: Reports: Thyroid Disease Other Surgeries: Yes: Appendectomy, , Hysterectomy-Total, Thyroidectomy Amputation: No - *Social History Smoking Status: Current every day smoker Tobacco Type: cigarettes # Packs/Day (cigarettes): 1 Alcohol Intake: never Substance Use Type: denies use *Occupational Status:: employed Housing: house Household Members: spouse *Travel in the last 8 weeks: None Family Hx:: No significant family history Review of Systems - Review of Systems Review of systems:: pertinent systems reviewed and negative unless documented below In regards to fever review of systems, patient denies throat pain, denies cough or congestion or cold symptoms except for some minimal right-sided ear discomfort. No sinus pain. No dysuria. No joint pains or skin rash. Otherwise 10 point review of systems negative Meds Home Medications Medication Instructions Recorded Confirmed Type Calcium Carbonate [Calcium] 1,000 mg PO Q6 2 Days #16 tab 02/26/21 04/21/22 Rx levothyroxine 112 mcg tablet 112 mcg PO DAILY tab 06/26/21 04/21/22 History losartan 50 mg-hydrochlorothiazide 1 tab PO DAILY tab 06/26/21 04/21/22 History 12.5 mg tablet Allergies Allergy/AdvReac Type Severity Reaction Status Date / Time No Known Allergies Allergy Verified 06/26/21 10:22 Exam Vital signs and Labs for Last 24 Hours: Temp Pulse Resp BP Pulse Ox 98.7 F 93 H 20 126/57 L 91 L 04/21/22 08:00 04/21/22 08:00 04/21/22 08:00 04/21/22 08:00 04/21/22 08:00 Laboratory Results - last 24 hr 04/20/22 16:41: SARS-CoV-2 (PCR) Not detected, Influenza A Untype (PCR) Not detected, Influenza Type B (PCR) Not detected 04/20/22 17:08: WBC 15.7 H, RBC 4.00 L, Hgb 12.4, Hct 36.1 L, MCV 90.2, MCH 31.1, MCHC 34.4, RDW 13.9, Plt Count 231, MPV 8.7, Neut % (Auto) 86.7 H, Lymph % (Auto) 6.6 L, [place] % (Auto) 4.4, Eos % (Auto) 0.9, Baso % (Auto) 1.3, Neut # (Auto) 13.6 H, Lymph # (Auto) 1.0, [place] # (Auto) 0.7, Eos # (Auto) 0.2, Baso # (Auto
--- NOTE | 2022-04-21 09:07 | XR_ITS ---
PROCEDURE INFORMATION: Exam: XR Chest Exam date and time: 04/21/2022 9:12 AM Age: 62 years old Clinical indication: Fever TECHNIQUE: Imaging protocol: XR of the chest. Views: 2 views. COMPARISON: CT ABDOMEN PELVIS WO CON 06/15/2021 12:39 PM FINDINGS: Lungs: Unremarkable. No consolidation. Pleural spaces: Unremarkable. No pleural effusion. No pneumothorax. Heart/Mediastinum: Unremarkable. No cardiomegaly. Bones/joints: Unremarkable. IMPRESSION: No acute findings.
[2022-04-21 09:37] LABS: Intact Parathyroid Hormone 5.8 pg/mL (7.5-53.5)
[2022-04-21 10:17] LABS: Microscopic, Urine URINE MICROSCOPIC (MICROSCOPIC)
[2022-04-21 10:20] LABS: Appearance,Urine SL CLOUDY (Clear); Bilirubin,Urine Negative (Negative); Blood, Urine 2+ (Negative); Color,Urine YELLOW (Yellow); Glucose,Urine (UA) Negative (Negative); Ketones,Urine Negative (Negative); Leukocyte Esterase,Urine 1+ (Negative); Nitrate,Urine POSITIVE (Negative); Protein,Urine TRACE (Negative); Urobilinogen,Urine 0.2 EU/dl (0.2)
[2022-04-21 10:43] LABS: Bacteria,Urine 4+ /lpf; Squamous Epithelial Cell,Urine Occasional #/hpf (0-5); WBC,Urine 20-50 #/hpf (0-3)
--- NOTE | 2022-04-21 11:53 | HMH.PHAINT ---
MEDICATION RECONCILIATION COMPLETED ON PATIENT USING EXTERNAL FILL HISTORY FROM PHARMACY. -RODOLFO ALVARADO, LEID
[2022-04-21 14:25] LABS: Anion Gap 11.1 mEq/L (5-15); Blood Urea Nitrogen 18 mg/dl (7-17); Calcium 7.1 mg/dl (8.4-10.2); Carbon Dioxide 31 mmol/L (22.0-30.0); Chloride 95 mmol/L (98-107); Creatinine Clearance Estimated 44 mL/min (50-200); Estimated Glomerular Filt Rate 35 ml/min (>60); GFR (African American) 43 ML/MIN (>60); Glucose 127 mg/dl (74-100); Potassium 3.1 mmoL/L (3.5-5.1); Sodium 134 mmol/L (136-145)
--- NOTE | 2022-04-21 15:31 | PC.NURSE ---
Addendum entered by Trixie Taylor RN 04/22/22 07:46: On 04/21/2022 at 1600 patient spiked fever of 101.4; provider notified and cancelled discharge and gave v.o. to start Ceftriaxone 1gm IV daily; Tylenol administered for fever, antibiotic started. At 1800 temp 99.8. Original Note: Notified Dr. Stapleton of Potassium, Calcium, and urine results. Recvd v.o. at 1428 to give one time dose of Macrobid 100mg PO and to discharge patient to home; he will send in prescriptions Macrobid and Diflucan to [facility] per patients request. Patient to follow-up with Dr. Stapleton office this week.
[2022-04-22] VITALS: BP 140/79; PULSE 100; PULSE 98; RESP 17; TEMP 37.8; O2SAT 96
[2022-04-22 04:00] VITALS: BP 127/69; PULSE 70; PULSE 79; RESP 17; TEMP 36.7; O2SAT 97
[2022-04-22 04:56] VITALS: BMI 24.0
--- NOTE | 2022-04-22 06:54 | PC.NURSE ---
No acute changes. Ptc/o headache 1x t/o shift. Pt has been slightly febrile 1x t/o shift with a temp of 100.0. Tylenol administered per MAR with favorable results. Pt able to ambulate to BR independently. Stool specimen sent to lab. Call light within reach.
[2022-04-22 08:00] VITALS: BP 126/60; PULSE 84; RESP 16; TEMP 37.1; O2SAT 96
--- NOTE | 2022-04-22 08:30 | HMH.DCSUM ---
General - General Admission date:: 04/20/22 Discharge date: 04/22/22 HPI HPI: 62-year-old female who is enjoyed fairly good functional status, who has had problems over the past several years with hypocalcemia, after thyroid surgery. She was told by Dr. Carranza that during her thyroid excision a cyst was found laterally to this and that when this was removed involved one of her parathyroid glands which was clipped. Since that time she is struggled with hypocalcemia and has had frequent problems with weakness, and has been taking oral calcium supplementation, 1000 mg daily, but continues to have relatively low calcium levels. Has never seen endocrinology. Does not recall any work-up done for her parathyroid hormone levels. She is very active in spite of the hypocalcemia and did not really have any problems with blood pressure until 2 years ago when she had COVID-19 infection and since that time has been placed on losartan/HCTZ. About 4 days ago she developed a significant diarrheal illness with abdominal cramping, production of multiples episodes of brownish watery stool without blood, mucus or vomiting. Her and grandchildren and children have not been ill. She cannot recall any unusual food or water sources or unusual smelling food or odd travel exposures. She became very weak yesterday, came to the emergency department. She was found to be significantly hypokalemic and hypocalcemic. Admitted to hospital for replacement. In review of her chart it turns out she also had a fever of 102 on presentation and another fever this morning of over 100 degrees. Hospital Course Hospital Course: 62-year-old female admitted for electrolyte abnormalities, fever, diarrhea. Problems addressed as follows: 1. Hypokalemia- acute related to her diarrheal illness. P.o. and IV potassium replacement during admission. Values improved. We will continue with oral supplementation after discharge. Patient clinically feeling better. Tolerating irbesartan during admission. We will continue at discharge. Hold on diuretics due to their impact on her electrolytes. Normotensive for the past 48 hours. 2. Hypocalcemia-not an acute issue. Longstanding. Reported trouble with her parathyroids after having her thyroid removed. Has never seen endocrinology. Needs referral from the outpatient setting. Calcium better, will send on a calcium supplementation. Further management from clinic. 3. Acute febrile illness-findings concerning for UTI. Tolerating ceftriaxone. Fever defervesced over the past 24 hours. Will transition to cefdinir to complete empiric course. Counseled on potential side effects and benefits of medication changes. Medically stable for discharge home. Examined on day of discharge. Objective Vital signs: Temp Pulse Resp BP Pulse Ox 98.1 F 79 17 127/69 97 04/22/22 04:00 04/22/22 04:00 04/22/22 04:00 04/22/22 04:00 04/22/22 04:00 Narrative: - Constitutional no acute distress - *Routine HEENT Exam Head: Present: normocephalic Eye: Present: EOMI, PERRL ENT: Mucous membranes moist, external ear normal - *Routine Neck Exam Present: supple. Absent: lymphadenopathy - *Routine Respiratory Exam Present: CTA bilaterally - *Routine Cardiovascular Exam Present: RRR - *Routine Abdominal Exam Present: soft, normoactive bowel sounds. Absent: tenderness - *Routine Extremities Exam Absent: cyanosis, clubbing, edema, - *Routine Skin Exam Present: warm. Absent: rash - *Routine Neurological Exam Present: alert, oriented X3 No muscle fasciculations or cramping Results Labs on day of discharge: Labs from last 24 hours 04/21/22 04/21/22 04/21/22 14:08 10:10 05:54 Sodium 134 L Potassium 3.1 L Chloride 95 L Carbon Dioxide 31 H Anion Gap 11.1 BUN 18 H Creatinine 1.50 H Estimated Creat Clear 44 Estimated GFR 35 L Est GFR ( Amer
[2022-04-22 09:25] LABS: Adenovirus F 40/41, stool Not Detected (NotDetected); Astrovirus Not Detected (NotDetected); Campylobacter Not Detected (NotDetected); Clostridium Difficile A/B, PCR Not Detected (NotDetected); Cryptosporidium Not Detected (NotDetected); Cyclospora Cayetanesis Not Detected (NotDetected); Entamoeba histolytica Not Detected (NotDetected); Enteroaggregative E coli Not Detected (NotDetected); Enteropathogenic E coli Not Detected (NotDetected); Enterotoxigenic E coli Not Detected (NotDetected); Giardia lamblia Not Detected (NotDetected); Norovirus Not Detected (NotDetected); Plesimonas Shigalloides, PCR Not Detected (NotDetected); Rotavirus A Not Detected (NotDetected); Salmonella, PCR Not Detected (NotDetected); Sapovirus Not Detected (NotDetected); Shiga-like toxin E coli Not Detected (NotDetected); Shigella Enterovasive E coli Not Detected (NotDetected); Vibrio Cholerae Not Detected (NotDetected); Vibrio, PCR Not Detected (NotDetected); Yersinia Entercolitica, PCR Not Detected (NotDetected)
--- NOTE | 2022-04-22 11:14 | PC.NURSE ---
rocephin can be hung at 1200. may discharge once that is administered
--- NOTE | 2022-04-23 14:00 | CARE MANAGER ---
Spoke with patient in post-discharge phone interview, she states that she is doing well and has no issues. Patient states that she has her medication and her follow-up appointment.
== END 2022-04-22 12:48 | disposition home or self-care (01) | DRG 641 ==
LOC: ER 17:25 → 2ND 19:36
PROVIDERS: Admitting Provider Internal Medicine Adolescent Medicine; Emergency Provider Emergency Medicine; PCP Family Medicine; Visit Provider Internal Medicine Adolescent Medicine
DX: E83.51 Hypocalcemia (principal); N39.0 Urinary tract infection, site not specified; E87.6 Hypokalemia; I10 Essential (primary) hypertension; Z20.822 Contact with and (suspected) exposure to COVID-19
CPT/HCPCS: 36415; 71046; 80048; 80053; 81001; 83735; 83970; 85007; 85025; 87040; 87086; 87088; 87186; 87507; 93005; 99285; C9803; J0696; U0003; U0005

== ENCOUNTER → 2022-05-08 15:10 | Outpatient (CLI) | payer BC, SELFPAY ==
--- NOTE | 2022-05-08 15:13 | CT_ITS ---
FINAL REPORT TECHNIQUE: Axial images were obtained from the lung apex to the mid abdomen by computed tomography. Low-dose protocol was utilized. CLINICAL HISTORY: current smoker for 20 years, 1ppd FINDINGS: CHEST CT LOW DOSE CTDI vol (mGy): 2.90 DLP (mGy-cm): 105.77 There is moderate left coronary artery calcification. There is no axillary adenopathy. There is no hilar or mediastinal adenopathy. The heart is normal in size. There is no pericardial or pleural effusion. Lung window images demonstrate no suspicious infiltrate or nodule. There is a calcified granuloma in the left lung. There is a 4 mm left fissural nodule, likely a lymph node. Limited images of the upper abdomen are unremarkable. IMPRESSION: Lung RADS category 1. Recommend 12 month follow-up low-dose chest CT. Reviewed, Interpreted and Dictated by Paul Barbosa III, MD Transcribed by Louise Blum Authenticated and [facility]
== END ==
PROVIDERS: PCP Family Medicine; Visit Provider Nurse Practitioner Family
DX: Z87.891 Personal history of nicotine dependence (principal); Z12.2 Encounter for screening for malignant neoplasm of respiratory organs
CPT/HCPCS: 71271

== ENCOUNTER → 2022-06-10 10:12 | Outpatient (CLI) | payer BC, SELFPAY | PROVIDERS: PCP Nurse Practitioner Family; Visit Provider Internal Medicine Gastroenterology | DX: Z01.812 Encounter for preprocedural laboratory examination (principal); Z20.822 Contact with and (suspected) exposure to COVID-19; Z13.810 Encounter for screening for upper gastrointestinal disorder; Z12.11 Encounter for screening for malignant neoplasm of colon | CPT/HCPCS: C9803; U0003; U0005 ==

== ENCOUNTER 2022-06-12 08:39 | Day surgery (SDC) | payer BC, SELFPAY ==
[2022-06-09 14:01] VITALS: BMI 23.5
[2022-06-12] VITALS (7 sets, daily range): BP systolic 114–177; BP diastolic 63–92; PULSE 70–95; RESP 16–18; TEMP 36.3–36.8; O2SAT 93–99
--- NOTE | 2022-06-12 09:50 | HMH.ANESCL ---
[facility] Anesthesia Checklist - Patient Identification Patient Identification: Arm Band - Structural Data Admitted From: Home Planned Operative Procedure/s: egd/colonoscopy Consent for Planned Operative Procedure(s) Verified: Yes Verified Documents: Surgical Consent, History and Physical - NPO Status Verified Time NPO: 00:00 - Additional verifications Anesthesia Reactions: No - Airway Assessment C-Spine Mobility Assessed: Yes (mp2) TMJ Mobility Assessed: Yes Dentition: Good Dentition - Neurological Assessment Level of Consciousness: Awake, Alert - Anesthesia Plan Anesthesia Risk discussed: Yes Anesthesia Plan: Verified ASA Class: II Anesthesia Type: MAC [facility] History I have reviewed the patient's past medical history: Yes Medical History: Reports:: Hypertension Denies:: Cancer, Diabetes Mellitus Type 1, Diabetes Mellitus Type 2, Internal Pacemaker, MRSA, Seizures *Have you ever received a pneumonia vaccine?: No *Have you received a flu vaccine this season?: No Other Medical History: Reports: Thyroid Disease Anesthesia experience/problems:: nac Other Surgeries: Yes: Appendectomy, , Hysterectomy-Total, Thyroidectomy. No: Pacemaker Amputation: No - *Social History Last grade of school completed: 9th or 10th Smoking Status: Current every day smoker Tobacco Type: cigarettes # Packs/Day (cigarettes): 1 Alcohol Intake: never Substance Use Type: denies use *Occupational Status:: employed Housing: house Household Members: spouse *Travel in the last 8 weeks: None Family Hx:: No significant family history
--- NOTE | 2022-06-12 10:17 | HMH.SCOPE ---
- Procedure: Date: 06/12/22 Patient Date of :: 1960 Procedure Performed:: EGD Indications:: Anemia Performing Provider:: Deysi Gimenez MD Referring Provider:: Barbara Betancourt Sedation:: Propofol Procedure:: The gastroscope was gently passed through the incisoral orifice into the oral cavity and under direct visualization the esophagus was intubated. The endoscope was passed down the esophagus, through the stomach, and into the duodenum. Color, texture, mucosa, and anatomy of the esophagus, stomach, and duodenum were carefully examined with the scope. Findings:: Oropharynx: normal Esophagus: normal EG Junction: intact at 40 cm Cardia: normal Fundus: normal Body: normal Antrum: normal Duodenal bulb: normal Duodenum (second and third portion): normal Impression: Normal EGD. No evidence of ulcer disease or hiatus hernia noted. Recommendations:: F/U exam as needed Complications:: None Estimated blood obtained (mL): 0
--- NOTE | 2022-06-12 10:19 | HMH.SCOPE ---
- Procedure: Date: 06/12/22 Patient Date of :: 1960 Procedure Performed:: Colonoscopy and polypectomy Indications:: Anemia Performing Provider:: Deysi Gimenez MD Referring Provider:: Barbara Betancourt Sedation:: Propofol Procedure:: After placing the patient in the left lateral decubitus position, the colonoscopy was gently inserted into the rectum and under direct visualization advanced to the cecum which was identified by transillumination in the right lower quadrant, identification of the ileocecal valve, appendiceal orifice, and cecal strap. Color, texture, mucosa, and anatomy of the colon were carefully examined with the scope. Findings:: Anal canal: normal Rectum: normal Sigmoid colon: normal without polyps or inflammatory changes Descending colon: normal without polyps or inflammatory changes. 0.5 cm polyp noted. Resected with use of a snare. Splenic flexure: normal Transverse colon: normal without polyps or inflammatory changes Hepatic flexure: normal Ascending colon: normal without polyps or inflammatory changes Cecum: normal Terminal ileum: not visualized Impression: Polyp of descending colon. Specimens:: Polyp of descending colon Recommendations:: F/U examination in about 3-5 years Also consider capsule endoscopy if clinically indicated Complications:: None Estimated blood obtained (mL): 0
== END 2022-06-12 11:00 | disposition home or self-care (01) ==
LOC: OUTP 08:40
PROVIDERS: PCP Family Medicine; Visit Provider Internal Medicine Gastroenterology
PROC: 0DJ08ZZ Inspection of Upper Intestinal Tract, Via Natural or Artificial Opening Endoscopic (ICD-10-PCS; CPT 43235; principal; 2022-06-12 10:00)
DX: K63.5 Polyp of colon (principal); D64.9 Anemia, unspecified; I10 Essential (primary) hypertension; Z72.0 Tobacco use
CPT/HCPCS: 45385

== ENCOUNTER 2023-10-17 16:49 | Emergency (ER) | payer BC, SELFPAY ==
[2023-10-17] VITALS (12 sets, daily range): BP systolic 109–149; BP diastolic 61–75; PULSE 74–125; RESP 18–20; TEMP 36.8–38.3; O2SAT 91–99; BMI 24.2
--- NOTE | 2023-10-17 17:21 | XR_ITS ---
PROCEDURE INFORMATION: Exam: XR Chest Exam date and time: 10/17/2023 5:52 PM Age: 63 years old Clinical indication: Dyspnea; Patient HX: Smoker TECHNIQUE: Imaging protocol: Radiologic exam of the chest. Views: 1 view. COMPARISON: CT LUNG SCREENING 05/08/2022 3:17 PM FINDINGS: Lungs: No evidence of pneumonia or interstitial edema. Pleural spaces: Unremarkable. No pleural effusion. No pneumothorax. Heart/Mediastinum: Unremarkable. No cardiomegaly. Bones/joints: Unremarkable. IMPRESSION: No evidence of pneumonia or interstitial edema.
--- NOTE | 2023-10-17 17:21 | CT_ITS ---
PROCEDURE INFORMATION: Exam: CT Maxillofacial Without Contrast Exam date and time: 10/17/2023 6:03 PM Age: 63 years old Clinical indication: Pain; Fever; Headache; Type not specified; Additional info: Concern for bacterial sinus infx. TECHNIQUE: Imaging protocol: Computed tomography of the face without contrast. Radiation optimization: All CT scans at this facility use at least one of these dose optimization techniques: automated exposure control; mA and/or kV adjustment per patient size (includes targeted exams where dose is matched to clinical indication); or iterative reconstruction. REPORTING DATA: Count of CT and Cardiac NM exams in prior 12 months: This patient has received 0 known CTs and 0 known cardiac nuclear medicine studies in the 12 months prior to the current study. COMPARISON: CT HEAD/BRAIN WO CON 10/17/2023 5:58 PM FINDINGS: Orbital cavities: Globes are symmetric. Orbital rims/elizalde are intact. Intraconal fat appear unremarkable. Lacrimal glands are unremarkable. Bones/joints: No acute fracture of the maxillofacial region. Paranasal sinuses: Normal. No air-fluid levels. Soft tissues: Unremarkable. IMPRESSION: No acute fracture of the maxillofacial region.
--- NOTE | 2023-10-17 17:21 | CT_ITS ---
PROCEDURE INFORMATION: Exam: CT Head Without Contrast Exam date and time: 10/17/2023 5:58 PM Age: 63 years old Clinical indication: Pain; Headache not specified; Additional info: Fever, JEFFREY, facial pain TECHNIQUE: Imaging protocol: Computed tomography of the head without contrast. Radiation optimization: All CT scans at this facility use at least one of these dose optimization techniques: automated exposure control; mA and/or kV adjustment per patient size (includes targeted exams where dose is matched to clinical indication); or iterative reconstruction. REPORTING DATA: Count of CT and Cardiac NM exams in prior 12 months: This patient has received 0 known CTs and 0 known cardiac nuclear medicine studies in the 12 months prior to the current study. COMPARISON: No relevant prior studies available. FINDINGS: Brain: There is no evidence of acute intracranial hemorrhage, extra-axial collection or locoregional mass effect. There are scattered hypodensities in the periventricular and subcortical white matter. The appearance is nonspecific, but most likely represents chronic small vessel disease in a person of this age Cerebral ventricles: The ventricles, sulci and cisterns are normal in size and configuration for patient's age. No hydrocephalus or midline structure shift Pituitary gland and sella: Sellar/parasellar structures, craniocervical junction and orbits are unremarkable Paranasal sinuses: Visualized sinuses are unremarkable. No fluid levels. Mastoid air cells: Visualized mastoid air cells are well aerated. Bones/joints: No calvarial fracture Soft tissues: Unremarkable. Other findings: Motion artifact does moderately limit the sensitivity of this examination. IMPRESSION: No acute intracranial abnormality. No calvarial fracture.
--- NOTE | 2023-10-17 17:25 | HMH.EDGENADL ---
Discharge Plan Disposition Patient Disposition: Home, Self-Care Prescriptions Prescriptions: No Action ciprofloxacin-dexamethasone 0.3-0.1 % drops,suspension 3 drp otic (ear) BID 7 Days Qty: 7.5 0RF azelastine 137 mcg (0.1 %) aerosol,spray 2 spray intranasal BID Qty: 30 3RF Rx Instructions: administer into each nostril levocetirizine [Xyzal] 5 mg tablet 5 mg PO DAILY Qty: 90 3RF methylprednisolone [Medrol ([place])] 4 mg tablets,dose pack See Rx Instructions PO PER PKG DIR Qty: 21 0RF Rx Instructions: PO PER PKG DIR levothyroxine 137 MCG tablet 137 mcg PO DAILY iron-vit C-vit C46-zawrb acid 1 EACH tablet 1 each PO DAILY cyanocobalamin (vitamin B-12) 5,000 MCG tablet,disintegrating 5,000 mcg PO DAILY potassium chloride 20 MEQ tablet,ER particles/crystals 20 meq PO DAILY calcium carbonate 200 MG tablet,chewable 200 mg PO BID irbesartan 75 MG tablet 75 mg PO DAILY Referrals Follow up/Referrals: Nimisha Farr MD [Primary Care Provider] - See instructions Activity Restrictions/Add. Instructions Additional Instructions/Restrictions: You had an extensive valuation today for your initial presentation which included a cough headache frontal sinus pressure fever and elevated heart rate. No definitive diagnosis was made there is no radiographic evidence for bacterial sinusitis which was an initial concern your viral respiratory panel was negative no other definitive diagnosis was made. Your symptoms are most likely viral however I cannot rule out a serious bacterial infection we discussed the risk and benefits of a lumbar puncture and decided not to proceed with that test at the moment given how good you looked upon discharge. Please return with any worsening headaches neck stiffness changes in mental status or other concerns. You may take Tylenol and ibuprofen as needed for any symptoms that you are having but please be aware that there remains diagnostic uncertainty and to return with any concerns. Clinical Impressions Clinical Impression: Fever, Headache, Cough Discharge ED Provider: Deejay Bee General Adult HPI General Chief complaint: Headache Stated complaint: roman Time Seen by Provider: 10/17/23 17:14 Mode of Arrival: Ambulatory Source of Information: Patient Limitations: No Limitations Description of Symptoms (Recalled from ER Triage Doc. by RN): pt to ed c/o hot and cold sweats x1w, fever that started thursday and a headache that started today. History of Present Illness HPI narrative: Patient is a 63-year-old female presenting today with significant headache and fever over the last several days. States that her headache began today and is frontal in nature located primarily over her bilateral maxillary sinuses. No dental pain no frontal sinus pain. She states that she had a very mild cough but has also had some mild nausea associate with this. Had a home positive COVID test which was negative. Denies any neck stiffness or photophobia. Related Data Home Medications Medication Instructions Recorded Confirmed levothyroxine 137 mcg tablet 137 mcg PO DAILY Supplement 04/21/22 07/16/23 calcium carbonate 200 mg calcium 200 mg PO BID Supplement 06/09/22 07/16/23 (500 mg) chewable tablet cyanocobalamin (vitamin B-12) 5,000 mcg PO DAILY Supplement 06/09/22 07/16/23 5,000 mcg disintegrating tablet irbesartan 75 mg tablet 75 mg PO DAILY High blood pressure 06/09/22 07/16/23 iron-vit C-vit O57-fprod acid 100 1 each PO DAILY Supplement 06/09/22 07/16/23 mg-250 mg-25 mcg-1 mg tablet potassium chloride 20 mEq 20 meq PO DAILY Supplement 06/09/22 07/16/23 tablet,extended release(part/cryst) Previous Rx's Medication Instructions Recorded azelastine 137 mcg (0.1 %) nasal 2 spray intranasal BID allergy 07/16/23 spray aerosol symptoms #30 mL ciprofloxacin 0.3 %-dexamethasone 3 drp otic (ear) BID left ear pain 07/16/23 0.1 % ear drops,suspensi
[2023-10-17 17:43] LABS: Chloride 96 mmol/L (98-107)
[2023-10-17 17:44] LABS: Sodium 135 mmol/L (136-145)
[2023-10-17 17:46] LABS: Alanine Aminotransferase 21 U/L (12-78); Albumin Level 3.7 g/dl (3.5-5.0); Albumin/Globulin Ratio 1.1 (1.1-1.8); Alkaline Phosphatase 79 U/L (38-126); Aspartate Amino Transferase 27 U/L (14-36); Bilirubin,Total 0.8 mg/dl (0.2-1.3); Blood Urea Nitrogen 24 mg/dl (7-17); Carbon Dioxide 32 mmol/L (22.0-30.0); Creatinine Clearance Estimated 33 mL/min (50-200); Estimated Glomerular Filt Rate 27 ml/min (>60); GFR (African American) 33 ML/MIN (>60); Globulin 3.3 g/dL (1.3-3.2)
[2023-10-17 17:47] LABS: Calcium 7.7 mg/dl (8.4-10.2); Glucose 136 mg/dl (74-100)
[2023-10-17 17:54] LABS: Basophils % 0.2 % (0.1-2.0); Eosinophils % 0.2 % (0.1-12.0); Hemoglobin 12.5 g/dL (12.2-16.2); Lymphocytes # 1.5 K/mm3 (0.7-4.5); Mean Corpuscular HGB Conc 33.8 g/dL (31.8-35.4); Mean Corpuscular Hemoglobin 30.3 pg (27.0-31.2); Mean Corpuscular Volume 89.6 fl (81-99); Mean Platelet Volume 9.4 fl (7.4-10.4); Monocytes # 1.2 K/mm3 (0.1-1.0); Monocytes % 7.7 % (1.7-9.3); Neutrophils # 12.5 K/mm3 (1.8-7.8); Neutrophils % 81.9 % (37.0-80.0); Platelet Count 185 K/mm3 (142-424); Red Blood Count 4.12 M/mm3 (4.20-5.40); Red Cell Distribution Width 14.6 % (11.5-17.5); White Blood Count 15.3 K/mm3 (4.8-10.8)
[2023-10-17 17:58] LABS: MANUAL DIFFERENTIAL MANUAL DIFFERENTIAL (MANUAL DIFF)
[2023-10-17 18:11] LABS: Adenovirus,PCR Not Detected (NotDetected); Coronavirus 19, PCR Not Detected (NotDetected); Coronavirus 229E Not Detected (NotDetected); Coronavirus NL63 Not Detected (NotDetected); Coronavirus OC43 Not Detected (NotDetected); Coronovirus HKU1,PCR Not Detected (NotDetected); Human Metapneumovirus Not Detected (NotDetected); Influenza A, PCR Not Detected (NotDetected); Influenza AH1, 2009 Not Detected (NotDetected); Influenza AH1, PCR Not Detected (NotDetected); Influenza AH3,PCR Not Detected (NotDetected); Influenza B, PCR Not Detected (NotDetected); Parainfluenza 1, PCR Not Detected (NotDetected); Parainfluenza 2, PCR Not Detected (NotDetected); Parainfluenza 3, PCR Not Detected (NotDetected); Parainfluenza 4, PCR Not Detected (NotDetected); Respiratory Syncytial Virus Not Detected (NotDetected); Rhinovirus/Enterovirus Not Detected (NotDetected)
[2023-10-17 18:33] LABS: Lymphocytes % 12 % (10-50); Monocytes % 1 % (2-9); Neutrophils % 87 % (42-76); Total Cells Counted 100
[2023-10-17 18:34] LABS: Platelet Estimate Normal; RBC Morphology Normal
--- NOTE | 2023-10-17 19:32 | PC.NURSE ---
Pt resting states JEFFREY is better, temp is 98.2 at this time heart rate 85, BP 109/59, no other needs at this time. Awaiting CT result
--- NOTE | 2023-10-17 21:08 | PC.NURSE ---
I called lab about the resp. panel and spoke with Deana who advised the results would be entered now.
== END 2023-10-17 21:32 | disposition home or self-care (01) ==
PROVIDERS: Emergency Provider Student in an Organized Health Care Education/Training Program; PCP Family Medicine
DX: R51.9 Headache, unspecified (principal); E87.6 Hypokalemia; R50.9 Fever, unspecified; R05.9 Cough, unspecified; R09.81 Nasal congestion; F17.210 Nicotine dependence, cigarettes, uncomplicated
CPT/HCPCS: 70450; 70486; 71045; 80053; 83605; 85007; 85025; 87040; 87632; 87635; 96361; 96374; 99285; J2405

== ENCOUNTER 2024-07-03 11:51 | Emergency (ER) | payer BC, SELFPAY ==
[2024-07-03 12:10] VITALS: BP 137/75; PULSE 114; RESP 21; TEMP 37.1; O2SAT 98; BMI 24.7
--- NOTE | 2024-07-03 12:14 | ED_ITS ---
Discharge Plan Disposition Patient Disposition: Home, Self-Care Condition: Good Prescriptions Prescriptions: New phenazopyridine [Pyridium] 200 mg tablet 200 mg PO Q8H 2 Days Qty: 6 0RF nitrofurantoin monohyd/m-cryst [Macrobid] 100 mg Capsule 100 mg PO BID Qty: 10 0RF Rx Instructions: must administer with a meal/food No Action levothyroxine 137 MCG tablet 137 mcg PO DAILY calcitriol 0.25 mcg capsule 1 mcg PO BID Patient Comments: TAKE 1 CAPSULE BY MOUTH TWICE DAILY calcium carbonate 200 MG tablet,chewable 200 mg PO BID irbesartan 75 MG tablet 75 mg PO DAILY Referrals Follow up/Referrals: Nimisha Farr MD [Primary Care Provider] - See instructions Activity Restrictions/Add. Instructions Additional Instructions/Restrictions: Drink plenty of fluids. Take tylenol or ibuprofen for pain or fever. Take the medications as directed. Follow up with your regular doctor. GO TO THE ER FOR ANY WORSENING SYMPTOMS The pyridium will make your urine turn orange, this is an expected side effect. It will stain your clothes if it comes into contact with them. We will culture the urine. That will tell what bacteria is causing your infection and which antibiotics will treat it best. Sometimes the first antibiotic we prescribe turns out to not work against different bacteria. So, make sure you follow up within 3 days if you are not getting better. Clinical Impressions Clinical Impression: UTI (urinary tract infection) Instructions Patient Instructions: DI for Urinary Tract Infection (UTI), Urine Culture, Phenazopyridine Print Language Print Language: [place] Discharge ED Provider: Fabio Henry [facility] General Stated complaint: uti Time Seen by Provider: 07/03/24 12:13 History of Present Illness Provider Complaint: She states that for the past 3 days she has had dysuria, low back pain, and urinary frequency. Related Data Home Medications ?Medication ?Instructions ?Recorded ?Confirmed levothyroxine 137 mcg tablet 137 mcg PO DAILY Supplement 04/21/22 07/03/24 calcium carbonate 200 mg PO BID Supplement 06/09/22 07/03/24 irbesartan 75 mg tablet 75 mg PO DAILY High blood pressure 06/09/22 07/03/24 calcitriol 0.25 mcg capsule 1 mcg PO BID 07/03/24 07/03/24 Previous Rx's ?Medication ?Instructions ?Recorded nitrofurantoin 100 mg PO BID #10 caps 07/03/24 monohydrate/macrocrystals 100 mg capsule (Macrobid) phenazopyridine 200 mg tablet 200 mg PO Q8H 2 days #6 tabs 07/03/24 (Pyridium) Allergies Allergy/AdvReac Type Severity Reaction Status Date / Time No Known Allergies Allergy Verified 07/16/23 09:53 [facility] Disclaimer: The information contained in this section may have been updated after the patient was seen, as this information can be updated by other users. Medical History (Updated 07/03/24 @ 12:33 by Fabio Henry APRN) Chronic dysfunction of both eustachian tubes Left serous otitis media Allergic rhinitis Social History Smoking Status: Current every day smoker tobacco type: cigarettes packs per day: 1 alcohol intake: never substance use type: denies use current occupational status: employed Travel in the last 8 weeks: None household members: spouse housing: house current occupation: self-employeed caffeine: Yes ROS Obtained: Yes All systems reviewed & no additional complaints except as documented Constitutional Constitutional: Reports system reviewed and no additional complaints, except as documented, Denies chills and Denies fever(s) Eyes Eyes: Denies eye discharge ENT Ears, Nose, Mouth, and Throat: Denies dysphagia, Denies sore throat and Denies throat swelling Cardiovascular Cardiovascular: Denies chest pain and Denies dyspnea Respiratory Respiratory: Denies chest congestion, Denies cough and Denies dyspnea Gastrointestinal Gastrointestingal: Denies abdominal pain, constipation, diarrhea, dysphagia, nausea or vomiting Genitourinary Female Genitourinary: Reports as per HPI, Reports dysuria, Reports urinary frequency, Denies urinary incontinence, Reports urinary hesitancy and Reports urinary urgency Musculoskeletal Musculoskeletal: Denies arthralgias and Reports back pain Integumentary/Breasts Skin/Breast: Denies rash Neurologic Neurologic: Denies paresthesias Allergic/Immunologic Allergic/Immunologic: Denies throat swelling Physical Exam General General appearance: alert and in no apparent distress Head Head exam: atraumatic and normocephalic Eye Eye exam: Present normal appearance, PERRL and EOMI ENT ENT exam: Present normal exam, mucous membranes moist, TM's normal bilaterally and normal external ear exam Neck Neck exam: Present normal inspection, full ROM and trachea midline; Absent tenderness, meningismus or lymphadenopathy Chest Chest inspection: Present normal inspection and symmetric chest wall rise; Absent tenderness Respiratory Respiratory exam: Present normal lung sounds bilaterally; Absent respiratory distress, wheezes or stridor Cardiovascular Cardiovascular exam: Present regular rate, normal rhythm and normal heart sounds Abdominal Exam Abdominal exam: Present soft and normal bowel sounds; Absent distention, tenderness, guarding, rebound, rigidity, incision, psoas sign, obturator sign, heel tap sign, Bob's sign, Rovsing's sign or tenderness at McBurney's Point Extremities Exam Extremities exam: Present normal inspection, full ROM and normal capillary refill; Absent tenderness, edema, joint swelling, calf tenderness or cyanosis Back Exam Back exam: Present normal inspection and full ROM; Absent tenderness, CVA tenderness (R) or CVA tenderness (L) Neurological Exam Neurological exam: Present alert, oriented X3 and normal gait Psychiatric Psychiatric exam: Present normal affect and normal mood Skin Skin exam: Present warm, dry, intact and normal color Lymphatic Lymphatic Findings: no adenopathy Medical Decision Making Medical Records Medical records reviewed: No I reviewed the patient's medical records. Harley Inquiry Pt receiving controlled substance: No Lab Data Lab results reviewed: Yes I reviewed the patient's lab results.
[2024-07-03 12:24] LABS: Apearance,Urine Cloudy (Clear); Color,Urine Dark Yellow (Yellow); Glucose,Urine (UA) Negative (Negative); PH,Urine 6.5 (5.0-8.5); Protein,Urine 1+ (Negative); Specific Gravity, Urine 1.015 (1.005-1.030)
[2024-07-03 12:25] LABS: Bilirubin,Urine Negative (Negative); Blood, Urine 3+ (Negative); Ketones,Urine Negative (Negative); UTC Leukocyte Esterase,Urine 3+ (Negative); UTC Nitrate,Urine Positive (Negative); Urobilinogen,Urine 1 EU/dl (0.2)
[2024-07-03 12:35] VITALS: BP 137/75; PULSE 114; RESP 21; TEMP 37.1; O2SAT 98
--- NOTE | 2024-07-05 10:06 | PC.NURSE ---
REVIEWED CULTURE WITH Andrew SERRANO APRN. NO CHANGE NEEDED AT THIS TIME
== END 2024-07-03 12:37 | disposition home or self-care (01) ==
PROVIDERS: Emergency Provider Nurse Practitioner Family; PCP Family Medicine
DX: N39.0 Urinary tract infection, site not specified (principal); B96.29 Other Escherichia coli [E. coli] as the cause of diseases classified elsewhere; R30.0 Dysuria; M54.59 Other low back pain; R35.0 Frequency of micturition
CPT/HCPCS: 81003; 87086; 87088; 87186; 99204; 99212; 99214; G0463

== ENCOUNTER 2024-07-05 13:02 | Outpatient (CLI) | payer BC, SELFPAY ==
[2024-07-05 13:18] LABS: Albumin Level 3.9 g/dl (3.5-5.0); Basophils # 0.1 K/mm3 (0-0.2); Basophils % 0.5 % (0.1-2.0); Chloride 101 mmol/L (98-107); Eosinophils % 0.3 % (0.1-12.0); Hematocrit 38.1 % (37.0-47.0); Hemoglobin 12.2 g/dL (12.2-16.2); Lymphocytes # 1.8 K/mm3 (0.7-4.5); Lymphocytes % 13.5 % (10-50); Mean Corpuscular HGB Conc 31.9 g/dL (31.8-35.4); Mean Corpuscular Hemoglobin 29.1 pg (27.0-31.2); Mean Corpuscular Volume 91.2 fl (81-99); Mean Platelet Volume 9.7 fl (7.4-10.4); Monocytes # 0.9 K/mm3 (0.1-1.0); Monocytes % 6.5 % (1.7-9.3); Neutrophils # 10.4 K/mm3 (1.8-7.8); Neutrophils % 79.1 % (37.0-80.0); Platelet Count 228 K/mm3 (142-424); Red Blood Count 4.18 M/mm3 (4.20-5.40); Red Cell Distribution Width 14.5 % (11.5-17.5); Sodium 136 mmol/L (136-145); White Blood Count 13.1 K/mm3 (4.8-10.8)
[2024-07-05 13:21] LABS: Alanine Aminotransferase 19 U/L (12-78); Anion Gap 9.7 mEq/L (5-15); Aspartate Amino Transferase 24 U/L (14-36); Blood Urea Nitrogen 17 mg/dl (7-17); Carbon Dioxide 28 mmol/L (22.0-30.0); Estimated Glomerular Filt Rate 33 ml/min (>60); GFR (African American) 40 ML/MIN (>60)
[2024-07-05 13:22] LABS: Albumin/Globulin Ratio 1.1 (1.1-1.8); Alkaline Phosphatase 88 U/L (38-126); Bilirubin,Total 0.8 mg/dl (0.2-1.3); Calcium 8.1 mg/dl (8.4-10.2); Globulin 3.4 g/dL (1.3-3.2); Glucose 118 mg/dl (74-100); Total Protein,Serum 7.3 g/dl (6.3-8.2)
[2024-07-05 13:24] LABS: Potassium 2.7 mmoL/L (3.5-5.1)
== END 2024-07-05 23:59 | disposition home or self-care (01) ==
LOC: LAB 13:03
PROVIDERS: PCP Nurse Practitioner Family; Visit Provider Nurse Practitioner Family
DX: N30.00 Acute cystitis without hematuria (principal)
CPT/HCPCS: 36415; 80053; 85025

== ENCOUNTER 2024-07-05 15:02 | Observation (INO) | payer BC, SELFPAY ==
[2024-07-05] VITALS (8 sets, daily range): BP systolic 115–149; BP diastolic 65–82; PULSE 81–105; RESP 14–31; TEMP 36.7–36.9; O2SAT 94–97; BMI 24.7; BMI 24.6
--- NOTE | 2024-07-05 15:04 | ECG_ITS ---
APPROVED REPORT Exam: Resting ECG HR:101 bpm ECG Measurements Heart Rate 101 AXES NJ 155 P 38 QRSd 86 QRS 52 QT 340 T 70 QTc 398 Conclusion SINUS TACHYCARDIA WITH OCCASIONAL VENTRICULAR PREMATURE COMPLEXES WITH FREQUENT SUPRAVENTRICULAR PREMATURE COMPLEXES POSSIBLE LEFT ATRIAL ENLARGEMENT [-0.1mV P-WAVE IN V1/V2] NONSPECIFIC ST & T-WAVE ABNORMALITY ABNORMAL RHYTHM ECG UNCONFIRMED REPORT Electronically signed by : Fabio Bee, 07/05/2024 22:54:00
--- NOTE | 2024-07-05 15:24 | ED_ITS ---
Discharge Plan Disposition Patient Disposition: Admitted Clinical Impressions Clinical Impression: Hypomagnesemia, Hypocalcemia, Hypokalemia Urinary tract infectious disease Qualifiers: Urinary tract infection type: site unspecified Hematuria presence: without hematuria Qualified Code(s): N39.0 - Urinary tract infection, site not specified Discharge ED Provider: Deejay Bee General Adult HPI General Chief complaint: Recheck/Abnormal Lab/Rx Stated complaint: n/v/d; abnormal labs Time Seen by Provider: 07/05/24 15:24 Mode of Arrival: Ambulatory Source of Information: Patient Limitations: No Limitations Description of Symptoms (Recalled from ER Triage Doc. by RN): pt reports to ED for further eval from pcp office. pt had labs drawn today and they were abnormal. pt reports n/v/d for the past two days. pt reports she was diagnosed with UTI on thursday and has been taking nitrofurantoin. pt reports hx of abnormal electrolyte History of Present Illness HPI narrative: Patient presents for evaluation of abnormal labs. Patient was diagnosed with a UTI this week at the [facility] and was prescribed antibiotics discharge. She followed up with her PCP for no improvement and had routine lab work done that showed hypokalemia. Patient presents for evaluation. She denies any chest pain palpitations tremors fevers chills hemoptysis hematochezia melena nausea vomiting diarrhea. Related Data Home Medications ?Medication ?Instructions ?Recorded ?Confirmed levothyroxine 137 mcg tablet 137 mcg PO DAILY Supplement 04/21/22 07/03/24 calcium carbonate 200 mg PO BID Supplement 06/09/22 07/03/24 irbesartan 75 mg tablet 75 mg PO DAILY High blood pressure 06/09/22 07/03/24 calcitriol 0.25 mcg capsule 1 mcg PO BID 07/03/24 07/03/24 Previous Rx's ?Medication ?Instructions ?Recorded nitrofurantoin 100 mg PO BID #10 caps 07/03/24 monohydrate/macrocrystals 100 mg capsule (Macrobid) phenazopyridine 200 mg tablet 200 mg PO Q8H 2 days #6 tabs 07/03/24 (Pyridium) Allergies Allergy/AdvReac Type Severity Reaction Status Date / Time No Known Allergies Allergy Verified 07/16/23 09:53 [facility] Disclaimer: The information contained in this section may have been updated after the patient was seen, as this information can be updated by other users. Medical History Hypothyroid Chronic dysfunction of both eustachian tubes Left serous otitis media Allergic rhinitis Social History Smoking Status: Current every day smoker tobacco type: cigarettes packs per day: 1 alcohol intake: never substance use type: denies use current occupational status: employed Travel in the last 8 weeks: None household members: spouse housing: house current occupation: self-employeed caffeine: Yes ROS Obtained: Yes Systems reviewed as appropriate & no additional complaints except as documented Physical Exam General General appearance: alert and in no apparent distress Respiratory Respiratory exam: Present normal lung sounds bilaterally Cardiovascular Cardiovascular exam: Present regular rate and normal rhythm Abdominal Exam Abdominal exam: Present soft and normal bowel sounds; Absent tenderness, guarding or rebound Neurological Exam Neurological exam: Present alert, oriented X3 and CN II-XII intact Medical Decision Making Medical Records Medical records reviewed: Yes I reviewed the patient's medical records. Harley Inquiry Pt receiving controlled substance: No Vital Signs: 07/05/24 15:02 07/05/24 17:30 07/05/24 17:48 Temperature 98.1 F Temperature Source Oral Pulse Rate 90 Pulse Rate [Left Radial] 105 H Respiratory Rate 19 31 H Blood Pressure 149/76 H Blood Pressure [Right Arm] 142/65 H Blood Pressure Mean [Right Arm] 90 Blood Pressure Source 02 Sat by Pulse Oximetry 95 94 L 96 Oxygen Delivery Method Room Air Room Air Room Air 07/05/24 18:00 07/05/24 18:26 Temperature 98.1 F Temperature Source Oral Pulse Rate 93 H 92 H Pulse Rate [Left Radial] Respiratory Rate 14 22 Blood Pressure 115/67 115/67 Blood Pressure [Right Arm] Blood Pressure Mean [Right Arm] Blood Pressure Source Automatic Cuff 02 Sat by Pulse Oximetry 96 Oxygen Delivery Method Room Air Room Air Lab Data Lab results reviewed: Yes I reviewed the patient's lab results. Lab Results 07/05/24 15:01: WBC 12.7 H, RBC 3.97 L, Hgb 11.8 L, Hct 36.3 L, MCV 91.4, MCH 29.8, MCHC 32.6, RDW 14.4, Plt Count 222, MPV 9.8, Neut % (Auto) 78.0, Lymph % (Auto) 14.8, [place] % (Auto) 6.4, Eos % (Auto) 0.4, Baso % (Auto) 0.4, Neut # (Auto) 9.9 H, Lymph # (Auto) 1.9, [place] # (Auto) 0.8, Eos # (Auto) 0.1, Baso # (Auto) 0.1, Sodium 134 L, Potassium 2.8 L*, Chloride 99, Carbon Dioxide 28, Anion Gap 9.8, BUN 18 H, Creatinine 1.60 H, Estimated Creat Clear 40, Estimated GFR 33 L, Est GFR ( Amer) 40 L, Glucose 115 H, Calcium 8.3 L, Magnesium 1.5 L, Total Bilirubin 0.8, AST 24, ALT 16, Alkaline Phosphatase 75, Total Protein 7.1, Albumin 3.7, Globulin 3.4 H, Albumin/Globulin Ratio 1.1 07/05/24 16:50: Urine Color Yellow, Urine Appearance Clear, Urine pH 6.5, Ur Specific [place] <= 1.005, Urine Protein 2+, Urine Glucose (UA) Trace, Urine Ketones Negative, Urine Blood 1+, Urine Nitrate Positive, Urine Bilirubin Negative, Urine Urobilinogen 4.0, Ur Leukocyte Esterase 1+ A, Urine RBC 5-10, Urine WBC 10-20, Ur Squamous Epith Cells 10-20, Urine Bacteria 3+ 07/05/24 15:01 07/05/24 15:01 Orders (Tests/Meds): ED MEDICATIONS Generic Name Dose Route Start Last Admin Trade Name Freq PRN Reason Stop Dose Admin Ceftriaxone Sodium 1 gm/ 50 mls @ 100 mls/hr 07/05/24 18:00 07/05/24 18:10 Sodium Chloride IV 07/15/24 17:59 100 mls/hr Q24H CHERIE Administration Irbesartan 75 mg 07/06/24 09:00 Irbesartan 75mg Tablet PO 08/05/24 08:59 DAILY CHERIE Levothyroxine Sodium 137 mcg 07/06/24 09:00 Levothyroxine 137mcg (0.137mg) Tab PO 08/05/24 08:59 DAILY CHERIE Discontinued Medications Generic Name Dose Route Start Last Admin Trade Name Freq PRN Reason Stop Dose Admin Sodium Chloride 1,000 mls @ 999 mls/hr 07/05/24 15:31 07/05/24 17:00 Sod Chlor 0.9% 1000ml Bag IV 07/05/24 16:31 999 mls/hr .Q1H1M ONE Administration Potassium Chloride/Water 100 mls @ 50 mls/hr 07/05/24 15:45 07/05/24 22:41 Potassium Chloride 20meq/100ml Ivpb IV 07/05/24 21:44 50 mls/hr Q2H CHERIE Administration Calcium Gluconate/Sodium Chloride 1 gm in 50 mls @ 50 mls/hr 07/05/24 16:02 07/05/24 16:52 Calcium Gluconate 1,000mg/50ml Nacl Premix IV 07/05/24 17:01 50 mls/hr ONCE ONE Administration Magnesium Sulfate 2 gm in 50 mls @ 50 mls/hr 07/05/24 17:51 07/05/24 19:53 Magnesium Sulfate 2gm/50ml Premix IV 07/05/24 18:50 50 mls/hr ONCE ONE Administration Ketorolac Tromethamine 15 mg 07/05/24 15:31 07/05/24 16:52 Ketorolac 30mg/Ml Vial IV 07/05/24 15:32 15 mg ONCE ONE Administration Potassium Chloride 60 meq 07/05/24 15:44 07/05/24 16:52 Potassium Chloride 20meq Tab PO 07/05/24 15:45 60 meq ONCE ONE Administration Potassium Chloride 40 meq 07/05/24 17:51 07/05/24 19:54 Potassium Chloride 20meq Tab PO 07/05/24 17:52 40 meq TID ONE Administration ORDERS Category Date Time Status CMP [Comprehensive Metabolic Panel] Stat Lab 07/05/24 15:01 Completed Complete Blood Count Auto Diff AMLAB Lab 07/06/24 06:00 Ordered Complete Blood Count Auto Diff Stat Lab 07/05/24 15:01 Completed Comprehensive Metabolic Panel AMLAB Lab 07/06/24 06:00 Ordered Magnesium AMLAB Lab 07/06/24 06:00 Ordered Magnesium Stat Lab 07/05/24 15:01 Completed UA [Urinalysis and Microscopic] Stat Lab 07/05/24 16:50 Completed Urine Culture Stat Micro 07/05/24 16:50 Received Medical Decision Narrative: In summary patient is a 4-year-old female who presents to the emergency department for evaluation of UTI and abnormal lab results. Patient is normotensive but tachycardic on arrival upon arrival, afebrile. Zickel exam is remarkable for suprapubic tenderness but no other focal findings. Differential diagnosis includes hypokalemia, UTI, sepsis etc. Initial workup will be conducted with hematologic labs UA twelve-lead EKG. Initial interventions include crystalloid bolus Tylenol Toradol. Initial workup reviewed by me shows that she has severe hypokalemia at 2.8 hypomagnesium [place] hypocalcemia and ongoing UTI. Upon repeat evaluation patient reports significant symptomatic improvement after initial intervention. Given this I had interactive discussion with hospital medicine about patient management and she is admitted for further evaluation and care Critical Care Critical Care Time Critical Care Time: No
[2024-07-05 15:39] LABS: Alanine Aminotransferase 16 U/L (12-78); Albumin Level 3.7 g/dl (3.5-5.0); Albumin/Globulin Ratio 1.1 (1.1-1.8); Alkaline Phosphatase 75 U/L (38-126); Anion Gap 9.8 mEq/L (5-15); Aspartate Amino Transferase 24 U/L (14-36); Bilirubin,Total 0.8 mg/dl (0.2-1.3); Blood Urea Nitrogen 18 mg/dl (7-17); Calcium 8.3 mg/dl (8.4-10.2); Carbon Dioxide 28 mmol/L (22.0-30.0); Chloride 99 mmol/L (98-107); Creatinine Clearance Estimated 40 mL/min (50-200); Estimated Glomerular Filt Rate 33 ml/min (>60); GFR (African American) 40 ML/MIN (>60); Globulin 3.4 g/dL (1.3-3.2); Glucose 115 mg/dl (74-100); Sodium 134 mmol/L (136-145); Total Protein,Serum 7.1 g/dl (6.3-8.2)
[2024-07-05 15:41] LABS: Basophils # 0.1 K/mm3 (0-0.2); Basophils % 0.4 % (0.1-2.0); Eosinophils # 0.1 K/mm3 (0.0-0.4); Eosinophils % 0.4 % (0.1-12.0); Hematocrit 36.3 % (37.0-47.0); Hemoglobin 11.8 g/dL (12.2-16.2); Lymphocytes # 1.9 K/mm3 (0.7-4.5); Lymphocytes % 14.8 % (10-50); Mean Corpuscular HGB Conc 32.6 g/dL (31.8-35.4); Mean Corpuscular Hemoglobin 29.8 pg (27.0-31.2); Mean Corpuscular Volume 91.4 fl (81-99); Mean Platelet Volume 9.8 fl (7.4-10.4); Monocytes # 0.8 K/mm3 (0.1-1.0); Monocytes % 6.4 % (1.7-9.3); Neutrophils # 9.9 K/mm3 (1.8-7.8); Platelet Count 222 K/mm3 (142-424); Red Blood Count 3.97 M/mm3 (4.20-5.40); Red Cell Distribution Width 14.4 % (11.5-17.5); White Blood Count 12.7 K/mm3 (4.8-10.8)
[2024-07-05 15:43] LABS: Potassium 2.8 mmoL/L (3.5-5.1)
--- NOTE | 2024-07-05 15:43 | PC.NURSE ---
critical k+ 2.8 received from lab. pt name and r/v. jovanny anand notified
[2024-07-05 15:47] LABS: Magnesium 1.5 mg/dl (1.6-2.3)
[2024-07-05] MEDS: POTASSIUM CHLORIDE 20MEQ TAB 60 MEQ PO (16:52)
[2024-07-05] MEDS: CALCIUM GLUC IN NACL, ISO-OSM 1 GM/50 ML BAG IV (16:52)
[2024-07-05] MEDS: KETOROLAC 30MG/ML VIAL 15 MG IV (16:52)
[2024-07-05 16:54] LABS: Microscopic, Urine URINE MICROSCOPIC (MICROSCOPIC)
[2024-07-05 16:55] LABS: Appearance,Urine CLEAR (Clear); Blood, Urine 1+ (Negative); Color,Urine YELLOW (Yellow); Glucose,Urine (UA) TRACE (Negative); Ketones,Urine Negative (Negative); Leukocyte Esterase,Urine 1+ (Negative); Nitrate,Urine POSITIVE (Negative); PH,Urine 6.5 (5.0-8.5); Protein,Urine 2+ (Negative); Specific Gravity, Urine <= 1.005 (1.005-1.030)
[2024-07-05] MEDS: 0.9 % SODIUM CHLORIDE 1000ML 1,000 ML 999 ML IV (17:00)
[2024-07-05] MEDS: KCl 20mEq/100ml 100 ML 50 MEQ IV ×3 (17:00→22:41)
[2024-07-05 17:02] LABS: Bilirubin,Urine Negative (Negative)
[2024-07-05 17:07] LABS: Bacteria,Urine 3+ /lpf
--- NOTE | 2024-07-05 17:50 | P.HP_ITS ---
History of Present Illness *Admission Date: 07/05/24 *Reason for visit:: Dysuria, abnormal labs *History of present illness: Presents as a 64-year-old female with hypertension, hypothyroid. Presented to the ER at the request of her PCP. She had labs drawn today that were abnormal with low potassium. Of note, was seen in the [facility] on Thursday and diagnosed with UTI. Started on Macrobid but has not had improvement in her symptoms. Has been having some nausea and vomiting since then. Denies any xander fever. Still having low back pain. Workup in the ER concerning for low potassium, low magnesium, elevated white count. Urine still grossly abnormal. Urine culture from 2 days ago positive for E. coli. Medicine consulted for admission for treatment of her electrolyte disturbances and due to failure of outpatient therapy. On arrival to the floor, patient complains of right-sided back pain. Is pleasant on room air. Hemodynamically stable. [facility] Disclaimer: The information contained in this section may have been updated after the patient was seen, as this information can be updated by other users. Medical History Hypothyroid Chronic dysfunction of both eustachian tubes Left serous otitis media Allergic rhinitis Social History Smoking Status: Current every day smoker tobacco type: cigarettes packs per day: 1 alcohol intake: never substance use type: denies use current occupational status: employed Travel in the last 8 weeks: None household members: spouse housing: house current occupation: self-employeed caffeine: Yes Review of Systems Review of Systems Review of systems (narrative): 14 point review of systems performed, pertinent positives and negatives as per HPI Meds Home Medications and Allergies Home Medications ?Medication ?Instructions ?Recorded ?Confirmed ?Type levothyroxine 137 mcg tablet 137 mcg PO DAILY Supplement 04/21/22 07/03/24 History calcium carbonate 200 mg PO BID Supplement 06/09/22 07/03/24 History irbesartan 75 mg tablet 75 mg PO DAILY High blood pressure 06/09/22 07/03/24 History calcitriol 0.25 mcg capsule 1 mcg PO BID 07/03/24 07/03/24 History nitrofurantoin 100 mg PO BID #10 caps 07/03/24 Rx monohydrate/macrocrystals 100 mg capsule (Macrobid) phenazopyridine 200 mg tablet 200 mg PO Q8H 2 days #6 tabs 07/03/24 Rx (Pyridium) New Prescriptions to Start Prescriptions: Allergies Allergy/AdvReac Type Severity Reaction Status Date / Time No Known Allergies Allergy Verified 07/16/23 09:53 Exam Data for Last 24 hours Vital signs and Labs for Last 24 Hours: Temp Pulse Resp BP Pulse Ox O2 Del Method 98.1 F 105 H 19 142/65 H 95 Room Air 07/05/24 15:02 07/05/24 15:02 07/05/24 15:02 07/05/24 15:02 07/05/24 15:02 07/05/24 15:02 Laboratory Results - last 24 hr 07/05/24 15:01: WBC 12.7 H, RBC 3.97 L, Hgb 11.8 L, Hct 36.3 L, MCV 91.4, MCH 29.8, MCHC 32.6, RDW 14.4, Plt Count 222, MPV 9.8, Neut % (Auto) 78.0, Lymph % (Auto) 14.8, [place] % (Auto) 6.4, Eos % (Auto) 0.4, Baso % (Auto) 0.4, Neut # (Auto) 9.9 H, Lymph # (Auto) 1.9, [place] # (Auto) 0.8, Eos # (Auto) 0.1, Baso # (Auto) 0.1, Sodium 134 L, Potassium 2.8 L*, Chloride 99, Carbon Dioxide 28, Anion Gap 9.8, BUN 18 H, Creatinine 1.60 H, Estimated Creat Clear 40, Estimated GFR 33 L, Est GFR ( Amer) 40 L, Glucose 115 H, Calcium 8.3 L, Magnesium 1.5 L, Total Bilirubin 0.8, AST 24, ALT 16, Alkaline Phosphatase 75, Total Protein 7.1, Albumin 3.7, Globulin 3.4 H, Albumin/Globulin Ratio 1.1 07/05/24 16:50: Urine Color Yellow, Urine Appearance Clear, Urine pH 6.5, Ur Specific [place] <= 1.005, Urine Protein 2+, Urine Glucose (UA) Trace, Urine Ketones Negative, Urine Blood 1+, Urine Nitrate Positive, Urine Bilirubin Negative, Urine Urobilinogen 4.0, Ur Leukocyte Esterase 1+ A, Urine RBC 5-10, Urine WBC 10-20, Ur Squamous Epith Cells 10-20, Urine Bacteria 3+ I & O for Last 24 hours: Intake & Output 07/02/24 07/03/24 07/04/24 07/05/24 23:59 23:59 23:59 23:59 Weight 69.4 kg Constitutional Constitutional: no acute distress and cooperative *Routine HEENT Exam Head: Present normocephalic Eye: Present EOMI and PERRL ENT: Present mucous membranes moist *Routine Neck Exam Neck: Present supple; Absent lymphadenopathy *Routine Respiratory Exam Respiratory: Present CTA bilaterally; Absent rhonchi, wheezes or crackles *Routine Cardiovascular Exam Cardiovascular: Present RRR *Routine Abdominal Exam Abdominal: Present soft, normoactive bowel sounds and tenderness (Mild, worse in right abdomen) *Routine Rectal Exam Rectal:: deferred *Routine Genitalia Exam Genitalia:: deferred *Routine Extremities Exam Extremities: Absent cyanosis, clubbing or edema Routine Back/Spine/Pelvis Exam Back/Spine: Present CVA tenderness (Right sided) *Routine Skin Exam Skin: Present warm; Absent rash *Routine Neurological Exam Neurological: Present alert, oriented X3 and moving all extremities; Absent altered mental status Assessment and Plan *Assessment and plan (1) Hypokalemia: Status: Acute Category: Medical Code(s): E87.6 - Hypokalemia (2) Pyelonephritis: Status: Acute Category: Medical Code(s): N12 - Tubulo-interstitial nephritis, not specified as acute or chronic (3) UTI (urinary tract infection): Status: Acute Category: Medical Code(s): N39.0 - Urinary tract infection, site not specified (4) Hypomagnesemia: Status: Acute Category: Medical Code(s): E83.42 - Hypomagnesemia (5) Hypertension, essential: Status: Acute Category: Medical Code(s): I10 - Essential (primary) hypertension (6) Hypothyroid: Status: Acute Category: Medical Code(s): E03.9 - Hypothyroidism, unspecified Plan 64-year-old female with recent diagnosis of UTI. Found to have abnormal electrolytes and persistent symptoms at her PCPs office. Sent to the ER for further evaluation. ER request admission. Discussed case with ER physician, request admission for IV antibiotics and electrolyte repletion. I agreed to admit for further management. Received IV potassium in the ER. Started on ceftriaxone 1 g daily. Problems addressed as follows: Hypokalemia Hypomagnesemia - Potassium low at 2.8, magnesium low at 1.5. Kidney function at baseline with BUN 18, creatinine 1.6 -Replace aggressively with 2 g IV magnesium and 40 mEq potassium 3 times a day. Repeat CBC, CMP, magnesium ordered for the morning Pyelonephritis UTI -White elevated at 12.7, urinalysis grossly abnormal with 3+ bacteria, leuk esterase and nitrate positive; CVA tenderness on right side consistent with Gerry - E. coli on culture obtained 07/03. Pansensitive. Initiate ceftriaxone 1 g daily given failure of outpatient therapy. Hypothyroid: Continue home levothyroxine 137 mcg daily Hide: Resume home irbesartan 75 mg daily Full code Ambulatory, no indication for VTE prophylaxis Regular diet
--- NOTE | 2024-07-05 17:50 | PC.NURSE ---
MANAGER CHEMICAL NOTIFIED OF ADMISSION
--- NOTE | 2024-07-05 18:03 | PC.NURSE ---
report called to luis on second floor
[2024-07-05] MEDS: CEFTRIAXONE 1 GM 1 GM in 0.9 % SODIUM CHLORIDE 50 ML IV (18:10)
[2024-07-05] MEDS: MAGNESIUM SULFATE IN WATER 2 GM/50 ML PIGGYBACK IV (19:53)
[2024-07-05] MEDS: POTASSIUM CHLORIDE 20MEQ TAB 40 MEQ PO (19:54)
--- NOTE | 2024-07-05 20:00 | PC.NURSE ---
pressroom foreman adding to patient r/t electrolyte imbalance.
[2024-07-06] VITALS: BP 116/57; PULSE 74; PULSE 79; RESP 19; TEMP 36.9; O2SAT 97
[2024-07-06 03:36] VITALS: BP 99/48; PULSE 80; RESP 20; TEMP 36.9; O2SAT 98; BMI 24.5
[2024-07-06 04:00] VITALS: PULSE 81
[2024-07-06 06:54] LABS: Basophils % 0.6 % (0.1-2.0); Eosinophils # 0.1 K/mm3 (0.0-0.4); Eosinophils % 1.8 % (0.1-12.0); Hematocrit 35.5 % (37.0-47.0); Hemoglobin 11.2 g/dL (12.2-16.2); Lymphocytes # 1.3 K/mm3 (0.7-4.5); Lymphocytes % 16.3 % (10-50); Mean Corpuscular HGB Conc 31.7 g/dL (31.8-35.4); Mean Corpuscular Hemoglobin 29.7 pg (27.0-31.2); Mean Corpuscular Volume 93.7 fl (81-99); Mean Platelet Volume 9.8 fl (7.4-10.4); Monocytes # 0.6 K/mm3 (0.1-1.0); Monocytes % 7.6 % (1.7-9.3); Neutrophils # 5.8 K/mm3 (1.8-7.8); Neutrophils % 73.7 % (37.0-80.0); Platelet Count 227 K/mm3 (142-424); Red Blood Count 3.79 M/mm3 (4.20-5.40); Red Cell Distribution Width 14.6 % (11.5-17.5); White Blood Count 7.8 K/mm3 (4.8-10.8)
[2024-07-06 07:01] LABS: Chloride 109 mmol/L (98-107)
[2024-07-06 07:02] LABS: Potassium 4.4 mmoL/L (3.5-5.1); Sodium 139 mmol/L (136-145)
[2024-07-06 07:04] LABS: Anion Gap 8.4 mEq/L (5-15); Blood Urea Nitrogen 17 mg/dl (7-17); Carbon Dioxide 26 mmol/L (22.0-30.0); Creatinine Clearance Estimated 42 mL/min (50-200); Estimated Glomerular Filt Rate 35 ml/min (>60); GFR (African American) 43 ML/MIN (>60)
[2024-07-06 07:05] LABS: Alanine Aminotransferase 15 U/L (12-78); Alkaline Phosphatase 80 U/L (38-126); Aspartate Amino Transferase 24 U/L (14-36); Bilirubin,Total 0.5 mg/dl (0.2-1.3); Glucose 101 mg/dl (74-100); Magnesium 2.4 mg/dl (1.6-2.3); Total Protein,Serum 6.3 g/dl (6.3-8.2)
[2024-07-06 07:49] VITALS: BP 120/70; PULSE 88; RESP 18; TEMP 36.8; O2SAT 98
--- NOTE | 2024-07-06 07:58 | P.DS_ITS ---
General Admission date:: 07/05/24 Discharge date: 07/06/24 HPI HPI HPI: Presents as a 64-year-old female with hypertension, hypothyroid. Presented to the ER at the request of her PCP. She had labs drawn today that were abnormal with low potassium. Of note, was seen in the [facility] on Thursday and diagnosed with UTI. Started on Macrobid but has not had improvement in her symptoms. Has been having some nausea and vomiting since then. Denies any xander fever. Still having low back pain. Workup in the ER concerning for low potassium, low magnesium, elevated white count. Urine still grossly abnormal. Urine culture from 2 days ago positive for E. coli. Medicine consulted for admission for treatment of her electrolyte disturbances and due to failure of outpatient therapy. On arrival to the floor, patient complains of right-sided back pain. Is pleasant on room air. Hemodynamically stable. Hospital Course Hospital Course Hospital Course: 64-year-old female with recent diagnosis of UTI. Found to have abnormal electrolytes and persistent symptoms at her PCPs office. Sent to the ER for further evaluation. ER request admission. Discussed case with ER physician, request admission for IV antibiotics and electrolyte repletion. I agreed to admit for further management. Received IV potassium in the ER. Started on ceftriaxone 1 g daily. Given concern for pyelonephritis, transition to levofloxacin to complete 7-day course of antibiotics for ease of oral dosing at home and improved treatment of kidney infection. Improving by morning clinically. Stable to discharge home for further management as an outpatient. Problems addressed as follows: Hypokalemia Hypomagnesemia - Potassium low at 2.8, magnesium low at 1.5. Kidney function at baseline with BUN 18, creatinine 1.6 on admission. Some improvement overnight. Potassium 4.4 by morning and magnesium 2.4. Kidney function remained stable with BUN 17 and creatinine 1.5. Will continue daily potassium supplementation with 20 mEq once daily. Recommend repeat labs with CMP and magnesium in 1 week. Pyelonephritis UTI -White elevated at 12.7, urinalysis grossly abnormal with 3+ bacteria, leuk esterase and nitrate positive; CVA tenderness on right side consistent with pyelonephritis. E. coli on culture obtained 07/03. Pansensitive. Initiated ceftriaxone 1 g daily given failure of outpatient therapy. Given sensitivity profile and concern for Gerry, transitioned to Levaquin for ease of oral dosing at discharge. Renally dosed for 750 mg every 48 hours. Will complete 7 days total of therapy. Given clinical improvement, stable to discharge home. Hypothyroid: Continue home levothyroxine 137 mcg daily Hide: Resume home irbesartan 75 mg daily Exam Data for Last 24 hours Vital signs and Labs for Last 24 Hours: Temp Pulse Resp BP Pulse Ox O2 Del Method 98.3 F 88 18 120/70 98 Room Air 07/06/24 07:49 07/06/24 07:49 07/06/24 07:49 07/06/24 07:49 07/06/24 07:49 07/06/24 07:49 Laboratory Results - last 24 hr 07/05/24 15:01: WBC 12.7 H, RBC 3.97 L, Hgb 11.8 L, Hct 36.3 L, MCV 91.4, MCH 29.8, MCHC 32.6, RDW 14.4, Plt Count 222, MPV 9.8, Neut % (Auto) 78.0, Lymph % (Auto) 14.8, [place] % (Auto) 6.4, Eos % (Auto) 0.4, Baso % (Auto) 0.4, Neut # (Au to) 9.9 H, Lymph # (Auto) 1.9, [place] # (Auto) 0.8, Eos # (Auto) 0.1, Baso # (Auto) 0.1, Sodium 134 L, Potassium 2.8 L*, Chloride 99, Carbon Dioxide 28, Anion Gap 9.8, BUN 18 H, Creatinine 1.60 H, Estimated Creat Clear 40, Estimated GFR 33 L, Est GFR ( Amer) 40 L, Glucose 115 H, Calcium 8.3 L, Magnesium 1.5 L, Total Bilirubin 0.8, AST 24, ALT 16, Alkaline Phosphatase 75, Total Protein 7.1, Albumin 3.7, Globulin 3.4 H, Albumin/Globulin Ratio 1.1 07/05/24 16:50: Urine Color Yellow, Urine Appearance Clear, Urine pH 6.5, Ur Specific [place] <= 1.005, Urine Protein 2+, Urine Glucose (UA) Trace, Urine Ketones Negative, Urine Blood 1+, Urine Nitrate Positive, Urine Bilirubin Negative, Urine Urobilinogen 4.0, Ur Leukocyte Esterase 1+ A, Urine RBC 5-10, Urine WBC 10-20, Ur Squamous Epith Cells 10-20, Urine Bacteria 3+ 07/06/24 05:22: WBC 7.8 D, RBC 3.79 L, Hgb 11.2 L, Hct 35.5 L, MCV 93.7, MCH 29.7, MCHC 31.7 L, RDW 14.6, Plt Count 227, MPV 9.8, Neut % (Auto) 73.7, Lymph % (Auto) 16.3, [place] % (Auto) 7.6, Eos % (Auto) 1.8, Baso % (Auto) 0.6, Neut # (Auto) 5.8, Lymph # (Auto) 1.3, [place] # (Auto) 0.6, Eos # (Auto) 0.1, Baso # (Auto) 0.0, Sodium 139, Potassium 4.4 D, Chloride 109 H, Carbon Dioxide 26, Anion Gap 8.4, BUN 17, Creatinine 1.50 H, Estimated Creat Clear 42, Estimated GF R 35 L, Est GFR ( Amer) 43 L, Glucose 101 H, Calcium 8.0 L, Magnesium 2.4 H D, Total Bilirubin 0.5, AST 24, ALT 15, Alkaline Phosphatase 80, Total Protein 6.3, Albumin 3.3 L D I & O for Last 24 hours: Intake & Output 07/03/24 07/04/24 07/05/24 07/06/24 23:59 23:59 23:59 23:59 Intake Total 650 / 650 Balance 650 / 650 Weight 69.173 kg 69.173 kg Constitutional Constitutional: no acute distress and cooperative *Routine HEENT Exam Head: Present normocephalic Eye: Present EOMI and PERRL ENT: Present mucous membranes moist *Routine Neck Exam Neck: Present supple; Absent lymphadenopathy *Routine Respiratory Exam Respiratory: Present CTA bilaterally; Absent rhonchi, wheezes or crackles *Routine Cardiovascular Exam Cardiovascular: Present RRR *Routine Abdominal Exam Abdominal: Present soft and normoactive bowel sounds; Absent tenderness *Routine Rectal Exam Patient deferred: visual exam *Routine Exam Patient deferred: external exam *Routine Extremities Exam Extremities: Absent cyanosis, clubbing or edema Routine Back/Spine/Pelvis Exam Back/Spine: Present CVA tenderness (Minimal but improved on the right side) *Routine Skin Exam Skin: Present warm; Absent rash *Routine Neurological Exam Neurological: Present alert, oriented X3 and moving all extremities; Absent altered mental status Results Data Completed and Pending Labs on day of discharge: Labs from last 24 hours 07/06/24 07/05/24 07/05/24 05:22 16:50 15:01 WBC 7.8 D 12.7 H RBC 3.79 L 3.97 L Hgb 11.2 L 11.8 L Hct 35.5 L 36.3 L MCV 93.7 91.4 MCH 29.7 29.8 MCHC 31.7 L 32.6 RDW 14.6 14.4 Plt Count 227 222 MPV 9.8 9.8 Neut % (Auto) 73.7 78.0 Lymph % (Auto) 16.3 14.8 [place] % (Auto) 7.6 6.4 Eos % (Auto) 1.8 0.4 Baso % (Auto) 0.6 0.4 Neut # (Auto) 5.8 9.9 H Lymph # (Auto) 1.3 1.9 [place] # (Auto) 0.6 0.8 Eos # (Auto) 0.1 0.1 Baso # (Auto) 0.0 0.1 Sodium 139 134 L Potassium 4.4 D 2.8 L* Chloride 109 H 99 Carbon Dioxide 26 28 Anion Gap 8.4 9.8 BUN 17 18 H Creatinine 1.50 H 1.60 H Estimated Creat Clear 42 40 Estimated GFR 35 L 33 L Est GFR ( Amer) 43 L 40 L Glucose 101 H 115 H Calcium 8.0 L 8.3 L Magnesium 2.4 H D 1.5 L Total Bilirubin 0.5 0.8 AST 24 24 ALT 15 16 Alkaline Phosphatase 80 75 Total Protein 6.3 7.1 Albumin 3.3 L D 3.7 Globulin 3.4 H Albumin/Globulin Ratio 1.1 Urine Color Yellow Urine Appearance Clear Urine pH 6.5 Ur Specific [place] <= 1.005 Urine Protein 2+ Urine Glucose (UA) Trace Urine Ketones Negative Urine Blood 1+ Urine Nitrate Positive Urine Bilirubin Negative Urine Urobilinogen 4.0 Ur Leukocyte Esterase 1+ A Urine RBC 5-10 Urine WBC 10-20 Ur Squamous Epith Cells 10-20 Urine Bacteria 3+ DS: Diagnosis Discharge Diagnosis (1) Hypokalemia: Status: Acute Code(s): E87.6 - Hypokalemia (2) Pyelonephritis: Status: Acute Code(s): N12 - Tubulo-interstitial nephritis, not specified as acute or chronic (3) UTI (urinary tract infection): Status: Acute Code(s): N39.0 - Urinary tract infection, site not specified (4) Hypomagnesemia: Status: Acute Code(s): E83.42 - Hypomagnesemia (5) Hypertension, essential: Status: Acute Code(s): I10 - Essential (primary) hypertension (6) Hypothyroid: Status: Acute Code(s): E03.9 - Hypothyroidism, unspecified Meds Home Medications and Allergies Home Medications ?Medication ?Instructions ?Recorded ?Confirmed ?Type calcium carbonate 200 mg PO BID Supplement 06/09/22 07/06/24 History irbesartan 75 mg tablet 75 mg PO DAILY 06/09/22 07/06/24 History calcitriol 0.25 mcg capsule 0.25 mcg PO BID 07/03/24 07/06/24 History levofloxacin 750 mg tablet 750 mg PO Q48H 4 days #2 tabs 07/06/24 Rx levothyroxine 125 mcg tablet 125 mcg PO DAILY 07/06/24 07/06/24 History potassium chloride 20 mEq 20 meq PO DAILY #30 tabs 07/06/24 Rx tablet,extended release New Prescriptions to Start Prescriptions: Fabio Heath potassium chloride Fabio Mchugh Allergies Allergy/AdvReac Type Severity Reaction Status Date / Time No Known Allergies Allergy Verified 07/16/23 09:53 Discharge Plan Disposition Patient Disposition: Home, Self-Care Condition: Good Follow up Plan Follow up with: Barbara Latham APRN [Primary Care Provider] - Enter time for follow up Prescriptions/Medication Reconciliation: New levofloxacin 750 mg tablet 750 mg PO Q48H 4 Days Qty: 2 0RF Rx Instructions: first dose due 07/08/24 potassium chloride 20 mEq tablet extended release 20 meq PO DAILY Qty: 30 0RF Continued calcitriol 0.25 mcg capsule 0.25 mcg PO BID Patient Comments: TAKE 1 CAPSULE BY MOUTH TWICE DAILY calcium carbonate 200 MG tablet,chewable 200 mg PO BID irbesartan 75 MG tablet 75 mg PO DAILY levothyroxine 125 mcg tablet 125 mcg PO DAILY Patient Comments: TAKE 1 TABLET BY MOUTH ONCE DAILY FOR 30 DAYS Discontinued phenazopyridine [Pyridium] 200 mg tablet 200 mg PO Q8H 2 Days Qty: 6 0RF nitrofurantoin monohyd/m-cryst [Macrobid] 100 mg Capsule 100 mg PO BID Qty: 10 0RF Rx Instructions: must administer with a meal/food Problem Reconciliation Problems Reviewed?: Yes Patient Discharge Instructions ACTIVITY: Continue current activity DIET: continue same diet Print Language: [place] Providers Primary Care Provider: Barbara Latham Admit Provider: Fabio Mchugh Attending Provider: Fabio Mchugh
[2024-07-06 08:00] VITALS: PULSE 90
[2024-07-06] MEDS: LEVOTHYROXINE 137MCG (0.137MG) TAB 137 MCG PO (08:27)
[2024-07-06] MEDS: IRBESARTAN 75MG TABLET 75 MG PO (08:27)
--- NOTE | 2024-07-06 08:29 | HMH.PHAINT1 ---
Pharmacy Intervention Comments: MEDICATION RECONCILIATION COMPLETED ON PATIENT USING EXTERNAL FILL HISTORY FROM PHARMACY. -RODOLFO ALVARADO, LEID
[2024-07-06 08:44] LABS: Albumin Level 3.3 g/dl (3.5-5.0); Albumin/Globulin Ratio 1.1 (1.1-1.8)
[2024-07-06] MEDS: LEVOFLOXACIN/D5W 750 MG/150 ML 750 MG/150 ML PIGGYBACK 100 MG IV (10:36)
[2024-07-06 11:45] VITALS: BP 134/76; PULSE 95; RESP 18; TEMP 37.1; O2SAT 98
--- NOTE | 2024-07-07 14:47 | CARE MANAGER ---
Contacted patient related to hospital discharge. She states she is tired, but doing better. She has new medications and is calling tomorrow for follow up appointment. JANICE Garrett
== END 2024-07-06 13:06 | disposition home or self-care (01) ==
LOC: ER 16:15 → 2ND 17:56
PROVIDERS: Physician Assistant; Admitting Provider Internal Medicine Adolescent Medicine; Emergency Provider Student in an Organized Health Care Education/Training Program; PCP Nurse Practitioner Family; Visit Provider Internal Medicine Adolescent Medicine
DX: E87.6 Hypokalemia (principal); E83.42 Hypomagnesemia; I10 Essential (primary) hypertension; F17.210 Nicotine dependence, cigarettes, uncomplicated; Z79.899 Other long term (current) drug therapy; N39.0 Urinary tract infection, site not specified; N12 Tubulo-interstitial nephritis, not specified as acute or chronic; E03.9 Hypothyroidism, unspecified
CPT/HCPCS: 36415; 80053; 81001; 83735; 85025; 87086; 93005; 99285; G0378; J0696; J1885; J1956; J3475

== ENCOUNTER 2024-08-09 14:56 | Outpatient (CLI) | payer BC, SELFPAY ==
[2024-08-09 15:30] LABS: Albumin Level 4.2 g/dl (3.5-5.0); Chloride 107 mmol/L (98-107); Sodium 142 mmol/L (136-145)
[2024-08-09 15:31] LABS: Potassium 3.2 mmoL/L (3.5-5.1)
[2024-08-09 15:33] LABS: Alanine Aminotransferase 12 U/L (12-78); Albumin/Globulin Ratio 1.3 (1.1-1.8); Alkaline Phosphatase 75 U/L (38-126); Anion Gap 6.2 mEq/L (5-15); Aspartate Amino Transferase 22 U/L (14-36); Bilirubin,Total 0.5 mg/dl (0.2-1.3); Blood Urea Nitrogen 12 mg/dl (7-17); Carbon Dioxide 32 mmol/L (22.0-30.0); Estimated Glomerular Filt Rate 35 ml/min (>60); GFR (African American) 43 ML/MIN (>60); Globulin 3.2 g/dL (1.3-3.2); Total Protein,Serum 7.4 g/dl (6.3-8.2)
[2024-08-09 15:34] LABS: Calcium 9.2 mg/dl (8.4-10.2); Glucose 86 mg/dl (74-100); Magnesium 1.8 mg/dl (1.6-2.3)
[2024-08-09 15:38] VITALS: BP 174/90; PULSE 80; RESP 18; TEMP 36.7; O2SAT 100
[2024-08-09] MEDS: 0.9 % SODIUM CHLORIDE 1000ML 1,000 ML 999 ML IV (15:38)
[2024-08-09 15:57] VITALS: BP 152/83; PULSE 80; RESP 18; O2SAT 100
[2024-08-09] MEDS: POTASSIUM CHLORIDE 20MEQ TAB 40 MEQ PO (16:01)
[2024-08-09 16:04] LABS: Thyroid Stimulating Hormone 0.87 uIU/mL (0.465-4.68)
[2024-08-09 16:17] LABS: Basophils # 0.1 K/mm3 (0-0.2); Basophils % 0.9 % (0.1-2.0); Eosinophils # 0.2 K/mm3 (0.0-0.4); Eosinophils % 3.1 % (0.1-12.0); Hematocrit 37.8 % (37.0-47.0); Hemoglobin 12.2 g/dL (12.2-16.2); Lymphocytes # 2.3 K/mm3 (0.7-4.5); Lymphocytes % 30.2 % (10-50); Mean Corpuscular HGB Conc 32.2 g/dL (31.8-35.4); Mean Corpuscular Hemoglobin 30.3 pg (27.0-31.2); Mean Corpuscular Volume 94.1 fl (81-99); Mean Platelet Volume 8.7 fl (7.4-10.4); Monocytes # 0.5 K/mm3 (0.1-1.0); Monocytes % 6.1 % (1.7-9.3); Neutrophils # 4.5 K/mm3 (1.8-7.8); Neutrophils % 59.8 % (37.0-80.0); Platelet Count 279 K/mm3 (142-424); Red Blood Count 4.02 M/mm3 (4.20-5.40); Red Cell Distribution Width 15.2 % (11.5-17.5); White Blood Count 7.6 K/mm3 (4.8-10.8)
[2024-08-09 16:27] VITALS: BP 166/91; PULSE 77; RESP 18; O2SAT 99
[2024-08-09 16:48] VITALS: BMI 23.3
[2024-08-09 16:52] VITALS: BP 167/95; PULSE 76; RESP 18; O2SAT 100
[2024-08-09 16:58] LABS: Microscopic, Urine URINE MICROSCOPIC (MICROSCOPIC)
[2024-08-09 17:00] LABS: Appearance,Urine CLEAR (Clear); Bilirubin,Urine Negative (Negative); Blood, Urine TRACE-I (Negative); Color,Urine YELLOW (Yellow); Glucose,Urine (UA) Negative (Negative); Ketones,Urine Negative (Negative); Leukocyte Esterase,Urine TRACE (Negative); Nitrate,Urine Negative (Negative); Protein,Urine Negative (Negative); Urobilinogen,Urine 0.2 EU/dl (0.2)
[2024-08-09 17:13] LABS: Bacteria,Urine 1+ /lpf
== END 2024-08-09 16:50 | disposition home or self-care (01) ==
PROVIDERS: PCP Nurse Practitioner Family; Visit Provider Nurse Practitioner Family
DX: R19.7 Diarrhea, unspecified (principal); R53.83 Other fatigue
CPT/HCPCS: 36415; 80050; 80053; 81001; 83735; 84443; 85025; 87086; 96360; G0463; J7030

== ENCOUNTER 2024-10-11 13:00 | Outpatient (POV) | payer BC, SELFPAY | END 2024-10-11 23:59 | disposition home or self-care (01) | LOC: SC 10-12 06:54 | PROVIDERS: Visit Provider Dermatology | DX: Z00.00 Encounter for general adult medical examination without abnormal findings (principal) ==